=== PATIENT | female | born 1940 | race Caucasian/White ===

== ENCOUNTER 2021-01-06 13:26 | Outpatient (REF) | payer MEDICARE, SELFPAY ==
--- NOTE | ~2021-01-06 | XR_ITS ---
EXAMINATION: XR LUMBOSACRAL SPINE WITH OBLIQUES CLINICAL INFORMATION: Lumbar radiculopathy. COMPARISON: None TECHNIQUE: The lumbar spine is imaged in 5 views: AP, lateral, lateral view coned to lumbosacral junction, and bilateral oblique. FINDINGS: There is normal lumbar segmentation with 5 [id number] lumbar vertebrae of normal height and normal lumbar lordosis. There is no lumbar vertebral compression or destructive process. Oblique views show no spondylolysis. There is no spondylolisthesis. There are prominent degenerative disc changes at L1-L2 with disc narrowing and endplate sclerosis and vertebral spurring. There are also prominent degenerative disc changes at L5-S1 and facet degeneration, greatest L4 through S1. The SI joints and visualized sacrum are unremarkable. Bowel gas is unremarkable. There are scattered bulky calcifications seen in the lower pelvis extending beyond the film margin, possibly related to calcified fibroids. XR/XR lumbar spine 4V min IMPRESSION: 1. No vertebral compression, spondylolisthesis, or destructive process. 2. Prominent degenerative disc changes L1-L2 and L5-S1. 3. Probable calcified uterine fibroids extending beyond [id number].
== END 2021-01-06 13:27 | disposition home or self-care (01) ==
LOC: HO.XRAY 13:26
PROVIDERS: PCP Internal Medicine; Visit Provider Psychiatry & Neurology Neurology
DX: M54.16 Radiculopathy, lumbar region (principal)
CPT/HCPCS: 72110

== ENCOUNTER 2023-10-13 09:55 | Outpatient (AMB) | payer MEDICARE, SELFPAY ==
--- NOTE | 2023-10-13 09:59 | MHC.OFFVIS ---
Intake Vital Signs 10/13/23 10:11 Height 5 ft 7 in Weight 179 lb BMI 28.0 Intake Visit Reasons: LOG BRANDER-Left knee-follow up DOS 10/12/22 Intake Note: Sommer is a 83 year old female who presents as a new patient to reestablish care with Dr. Mann. Patient reports she is here for a follow up after a Left knee surgery on 10/12/2022 and is doing ok. She states that she is having a problem walking, she feels like she is dragging her left leg or is in need of support. This has been going on for about 3 months. The patient did not go to outpatient physical therapy following her left knee surgery last year. She reports minimal discomfort in her left knee. She takes Tylenol as needed for her discomfort. She continues to walk on her home treadmill for exercise. Allergies statins Allergy (Mild, Uncoded 10/13/23 10:14) joint pain Medication List - Last Reconciled 10/13/23 by Jaya Mann MD alendronate 70 mg PO QWEEK alirocumab (Praluent Pen) mg subcut chlorthalidone 25 mg PO DAILY omeprazole 20 mg PO DAILY [facility] Surgical History (Updated 10/13/23 @ 10:17 by Donna Langford CMA) H/O right wrist surgery Hx of left knee surgery (10/12/22) Social History (Updated 10/13/23 @ 10:17 by Donna Langford CMA) Patient Tobacco Use Status: Never used Tobacco Current occupational status: retired Current occupation: Right hand dominate Physical Exam Vital Signs: BMI result Body Mass Index 28.0 Const Other: Well-nourished well-developed very friendly female awake alert and oriented x3 in no acute distress Extrem Other: Bilateral lower extremity examination shows good capillary refill, no skin lesions noted, normal sensation light touch Left knee examination shows that the surgical incision is well healed, no erythema, full active extension and flexion to 120 degrees, her patella tracks well Assessment & Plan Assessment & Plan (1) Left knee pain: Code(s): M25.562 - Pain in left knee Plan Ms. Hitchcock continues to do well after undergoing left total knee replacement surgery in September of 2022. She does have difficulty walking most likely due to deconditioning and stiffness in her hips and knees. Thus, I will send her to outpatient physical therapy. I will see her back in 2-3 months time for repeat clinical examination. She will contact me prior to that time should any questions or concerns arise. Feel free to call me at any time should questions regarding her orthopedic management arise. I spent 22 minutes in reviewing the patient's records and imaging studies, seeing the patient and documenting in the medical record. Orders: Orders PT Evaluation and Treatment Today R53.81 - Other malaise XR knee LT 3V Today M25.562 - Pain in left knee Coding Level of Care Code Est Pt Level 2 (33935) Diagnoses Left knee pain M25.562
[2023-10-13 10:11] VITALS: BMI 28.0
== END 2023-10-13 10:44 | disposition home or self-care (01) ==
PROVIDERS: PCP Internal Medicine; Visit Provider Orthopaedic Surgery
DX: M25.562 Pain in left knee (principal)
CPT/HCPCS: 99213

== ENCOUNTER 2023-10-13 15:36 | Outpatient (REF) | payer MEDICARE, SELFPAY ==
--- NOTE | ~2023-10-13 | XR_ITS ---
EXAMINATION: XR KNEE, LEFT CLINICAL INFORMATION: Pain COMPARISON: None available. TECHNIQUE: Three views of the left knee. FINDINGS: Status post left knee arthroplasty. Orthopedic hardware is grossly intact. No acute visible fracture or dislocation. Joint space alignment are otherwise maintained. Soft tissues are unremarkable. XR/XR knee LT 3V IMPRESSION: 1. Status post left knee arthroplasty with intact orthopedic hardware. 2. No acute visible fracture or dislocation.
== END 2023-10-13 15:37 | disposition home or self-care (01) ==
LOC: HO.HOSX 15:36
PROVIDERS: Visit Provider Orthopaedic Surgery
DX: M25.562 Pain in left knee (principal)
CPT/HCPCS: 73562; 99212

== ENCOUNTER 2024-01-13 09:20 | Outpatient (AMB) | payer MEDICARE, SELFPAY ==
--- NOTE | 2024-01-13 09:29 | A.OFFVIS_ITS ---
Intake Visit Reasons: OV-Left knee-follow up DOS 10/12/22, Arthritis of right knee Intake Note: Sommer is a 83 year old female who presents with complaints of progressively worsening right knee pain. She did undergo left total knee replacement surgery on 10/12/2022. She reports minimal discomfort in her left knee. She describes her right knee pain as sharp and severe in nature, 10/10. Her right knee pain has gotten worse over the last few years in spite of continued non operative treatments. She has had injections in the past which gave her minimal relief. She has also tried Tylenol and anti-inflammatory medicines which gave her only mild relief. She has done physical therapy exercises which aggravated her pain. The patient has difficulty walking even short distances because of her right knee pain. At this point her right knee pain is interfering with her activities of daily living and her ability to sleep well through the night. Allergies statins Allergy (Mild, Uncoded 01/13/24 09:29) joint pain Medication List - Last Reconciled 01/13/24 by Jaya Mann MD alendronate 70 mg PO QWEEK alirocumab (Praluent Pen) mg subcut chlorthalidone 25 mg PO DAILY omeprazole 20 mg PO DAILY [facility] Surgical History (Updated 10/13/23 @ 10:17 by Donna Langford CMA) H/O right wrist surgery Hx of left knee surgery (10/12/22) Social History (Updated 10/13/23 @ 10:17 by Donna Langford CMA) Patient Tobacco Use Status: Never used Tobacco Current occupational status: retired Current occupation: Right hand dominate Physical Exam Const Other: Well-nourished well-developed very friendly female awake alert and oriented x3 in no acute distress Extrem Other: Bilateral lower extremity examination shows good capillary refill, no skin lesions noted, normal sensation light touch Right knee examination shows a minimal effusion, palpable crepitus with range of motion, pain with range of motion, range of motion from -3 degrees to 115 degrees, no instability Results Reviewed Results Reviewed: X-rays of the patient's right knee show end-stage degenerative joint disease with grade 4 [id number] arthritis, subchondral sclerosis, no acute bony abnormalities Assessment & Plan Assessment & Plan (1) Arthritis of right knee: Code(s): M17.11 - Unilateral primary osteoarthritis, right knee Plan Ms. Parent presents with progressively worsening right knee pain due to end- stage degenerative joint disease. I had a lengthy discussion with the patient regarding the treatment options. At this point she has failed continued non operative treatments. The risks and benefits of right total knee replacement surgery were discussed at length with the patient. The patient is interested in proceeding with surgery later this year. She will contact my office to pick a surgery date. I will see her back prior to the surgery to answer any final questions that she might have. Feel free to call me at any time should questions regarding her orthopedic management arise. I spent 20 minutes in reviewing the patient's records and imaging studies, seeing the patient and documenting in the medical record. Coding Level of Care Code Est Pt Level 3 (91966) Diagnoses Arthritis of right knee M17.11
== END 2024-01-13 09:48 | disposition home or self-care (01) ==
PROVIDERS: PCP Internal Medicine; Visit Provider Orthopaedic Surgery
DX: M17.11 Unilateral primary osteoarthritis, right knee (principal)
CPT/HCPCS: 99214

== ENCOUNTER → 2024-01-13 09:20 | Outpatient (BNVA) | payer MEDICARE, SELFPAY | PROVIDERS: PCP Internal Medicine; Visit Provider Orthopaedic Surgery | DX: M17.11 Unilateral primary osteoarthritis, right knee (principal); Z96.652 Presence of left artificial knee joint | CPT/HCPCS: 99212 ==

== ENCOUNTER → 2024-03-10 08:57 | Outpatient (BNVA) | payer MEDICARE, SELFPAY | PROVIDERS: PCP Internal Medicine | DX: Z01.818 Encounter for other preprocedural examination (principal) ==

== ENCOUNTER 2024-03-13 08:40 | Outpatient (REF) | payer MEDICARE, SELFPAY ==
--- NOTE | ~2024-03-13 | XR_ITS ---
EXAMINATION: XR ANKLE, LEFT CLINICAL INFORMATION: Pain. COMPARISON: Radiographs dated 06/28/2010. TECHNIQUE: AP, lateral, and mortise views of the left ankle. FINDINGS: Bony alignment is normal. There is mild bony demineralization. The ankle mortise is intact. There is a chronic soft tissue calcification situated adjacent to the medial malleolus, suggesting an old, healed ligamentous injury. No acute fracture, dislocation or joint effusion is seen. Boehler's angle is normal. There are small posterior and moderate plantar calcaneal spurs. There are degenerative changes in the dorsal midfoot. No focal soft tissue swelling, gas or foreign body seen. XR/XR ankle LT min 3V IMPRESSION: 1. No fracture, dislocation or left ankle joint effusion is seen. 2. A chronic soft tissue calcification is seen adjacent to the medial malleolus, suggesting an old, healed ligamentous injury. 3. There are calcaneal spurs. Electronically signed by: Reg Hodgson MD 04/11/2024 09:06 AM EDT
== END 2024-03-13 08:41 | disposition home or self-care (01) ==
LOC: HO.HOSX 08:40
DX: M25.572 Pain in left ankle and joints of left foot (principal); S93.402D Sprain of unspecified ligament of left ankle, subsequent encounter
CPT/HCPCS: 73610; 99212

== ENCOUNTER 2024-03-13 09:41 | Outpatient (AMB) | payer MEDICARE, SELFPAY ==
--- NOTE | 2024-03-13 09:49 | A.OFFVIS_ITS ---
Vital Signs 03/13/24 09:53 Height 5 ft 7 in Weight 177 lb BMI 27.7 Intake Visit Reasons: L Ankle Sprain/L Foot Pain Intake Note: Sommer is a 84 year old female who presents today for a new problem visit with complaints of left ankle and foot pain. Patient expresses 02/09/24 she slipped on granular step, her foot rolled and went out from under her. She was in [place] when this injury took place so she did not go to the doctors for it. She was able to ambulate but with pains. She was limited to some of the tours she can do in [place] due to her injury so she sat on the bus. She was seen in [place] ED on 02/21/24 for this injury. She has started icing her foot after her ED visit and noticed her swelling went down she she discontinued. Her left ankle appears to be slightly swollen today. She has intermittent numbness and tingling on the lateral side of her left ankle mainly in the morning until she starts to stretch and move her ankle around. When she tries to turn herself in bed she expresses pain in her ankle/foot. She usually does a mile every morning on her treadmill but has put this on hold since her injury and would like clearance to return. She has been trying to stay off her foot at home and would like to know if she should continue this or if she may begin to return to normal daily activities. Allergies statins Allergy (Mild, Uncoded 03/13/24 09:54) joint pain HPI HPI L Ankle Sprain/L Foot Pain: Details: Patient is an 84-year-old female who presents for evaluation of left ankle sprain, date of injury approximately 02/10/2024. The patient reports that, while in [place], she was going up some stairs, and some loose rocks on the stairs caused her to invert her foot. Patient reports that, due to being in [place], she was not immediately evaluated, but she tried to ?take it easy? and weightbear as little as possible. She was evaluated at [facility] on 02/21/2024, where she was diagnosed with a left ankle sprain, as well as the finding of a small avulsion fracture of the medial malleolus of the right ankle of unknown age. Today, the patient reports that her pain and swelling have improved significantly since date of injury, and then she is only experiencing ?a discomfort sensation? in the lateral left ankle, as well as mild edema. Patient reports no other acute complaints or concerns at this time. [facility] Surgical History H/O right wrist surgery Hx of left knee surgery (10/12/22) Social History Patient Tobacco Use Status: Never used Tobacco Current occupational status: retired Current occupation: Right hand dominate Physical Exam Vital Signs: BMI result Body Mass Index 27.7 Extrem Other: On inspection, there is noted to be mild edema about the lateral aspect of the patient's left ankle No edema of the medial left ankle noted No erythema, ecchymosis, evidence of infection noted No lacerations or abrasions Patient reports mild tenderness to palpation about the lateral malleolus of the left ankle, particularly over the ATFL Patient reports no tenderness to palpation of the medial malleolus of the left ankle Range of motion of the left foot and ankle full and intact Patient reports mild discomfort with inversion of the left foot Distal sensation intact Capillary refill brisk Results Reviewed Results Reviewed: X-rays obtained in the office today and independently reviewed by me, Harjeet Neal PA-C, demonstrate avulsion fracture of the medial malleolus of the left ankle of unknown age. No other fracture or acute bony abnormality noted. Assessment & Plan Assessment & Plan (1) Left ankle sprain: Code(s): S93.402A - Sprain of unspecified ligament of left ankle, initial encounter Category: Medical Plan 1. Left ankle sprain Date of injury approximately 02/10/2024 Patient appears to be recovering well from her injury Patient is educated about the typical recovery course At this time, the patient will be provided with a lace-up ankle brace to wear with daytime activities to provide extra stability to the left ankle for approximately the next 1-2 weeks Patient is educated to not wear this while she is at rest or sleeping Patient is offered physical therapy, but declines, stating that she will be having a knee replacement in approximately 1 month and she does not feel that she will be able to finish PT adequately prior to this, and she will also have physical therapy after her surgery Patient is advised to continue with normal activities as tolerated, but to begin a gentle ramp up into normal exercise activities. Patient will follow-up p.r.n. with any acute concerns Orders: Orders XR ankle LT min 3V Today M25.572 - Pain in left ankle and joints of left foot Coding Level of Care Code Est Pt Level 3 (21811) Diagnoses Left ankle sprain S93.402A
[2024-03-13 09:53] VITALS: BMI 27.7
== END 2024-03-13 10:42 | disposition home or self-care (01) ==
PROVIDERS: PCP Internal Medicine
DX: S93.402A Sprain of unspecified ligament of left ankle, initial encounter (principal)
CPT/HCPCS: 99213

== ENCOUNTER 2024-04-06 10:00 | Outpatient (AMB) | payer MEDICARE, SELFPAY ==
--- NOTE | 2024-04-06 10:01 | MHC.OFFVIS ---
Intake Visit Reasons: R TKA w/ 04/10/24 Intake Note: Sommer is a 83 year old female who presents with complaints of progressively worsening right knee pain. She did undergo left total knee replacement surgery on 10/12/2022. She reports minimal discomfort in her left knee. She describes her right knee pain as sharp and severe in nature, 10/10. Her right knee pain has gotten worse over the last few years in spite of continued non operative treatments. She has had injections in the past which gave her minimal relief. She has also tried Tylenol and anti-inflammatory medicines which gave her only mild relief. She has done physical therapy exercises which aggravated her pain. The patient has difficulty walking even short distances because of her right knee pain. At this point her right knee pain is interfering with her activities of daily living and her ability to sleep well through the night. Allergies statins Allergy (Mild, Uncoded 04/06/24 10:01) joint pain Medication List - Last Reconciled 04/06/24 by Jaya Mann MD acetaminophen 1,000 mg PO BID PRN alendronate 70 mg PO QWEEK Bacillus subtilis-inulin 1.5 billion cell-1 gram (Cultureaustyn Gumradha) 1 tab PO DAILY calcium carbonate (Calcium 600) 600 mg PO DAILY chlorthalidone 25 mg PO DAILY cholecalciferol (vitamin D3) (Vitamin D3) 50 mcg PO DAILY coenzyme Q10 (Co Q-10) 300 mg PO DAILY docusate sodium 50 mg PO DAILY glucosamine-chondroitin 250-200 mg (Osteo Bi-Flex) 1 tab PO DAILY multivitamin 1 tab PO DAILY phytosterol-pantethine 300-100 mg (CholestOff Complete) caps PO psyllium husk 0.8 grams PO DAILY red yeast rice 1,200 mg PO DAILY rosuvastatin 5 mg PO DAILY turmeric root extract 1,076 mg PO DAILY vitamin B complex 1 cap PO DAILY walker Folding front wheeled walker [facility] Medical History Varicose vein of leg Hx of basal cell carcinoma COVID-19 Right bundle branch block History of fracture of wrist Mild diastolic dysfunction GERD (gastroesophageal reflux disease) Osteoporosis HTN (hypertension) Scarlet fever Hypercholesterolemia Osteoarthritis Surgical History Hx of tonsillectomy Hx of bilateral cataract extraction History of vein stripping Hx of dilation and curettage H/O colonoscopy H/O right wrist surgery Hx of left knee surgery (10/12/22) Social History Are you a primary administrator health care facility to a significant other at home: No Do you presently have visiting nurse or other home services: No Patient Tobacco Use Status: Former Tobacco user Current occupational status: retired Current occupation: Right hand dominate Physical Exam Const Other: Well-nourished well-developed very friendly female awake alert and oriented x3 in no acute distress Extrem Other: Bilateral lower extremity examination shows good capillary refill, no skin lesions noted, normal sensation light touch Right knee examination shows a minimal effusion, palpable crepitus with range of motion, pain with range of motion, range of motion from -3 degrees to 115 degrees, no instability Results Reviewed Results Reviewed: X-rays of the patient's right knee show end-stage degenerative joint disease with grade 4 [id number] arthritis, subchondral sclerosis, osteophyte formation, no acute bony abnormalities Assessment & Plan Assessment & Plan (1) Osteoarthritis of right knee: Code(s): M17.11 - Unilateral primary osteoarthritis, right knee Category: Medical Plan Ms. Hitchcock presents with progressively worsening right knee pain due to end-stage degenerative joint disease. I had a lengthy discussion with the patient regarding the treatment options. At this point she has failed continued non operative treatments. The risks and benefits of right total knee replacement surgery were discussed at length with the patient. The patient wishes to proceed with surgery. library services coordinator will be consulted following surgery for home physical therapy and nursing. The patient will follow-up as instructed. Feel free to call me at any time should questions regarding her orthopedic management arise. I spent 21 minutes in reviewing the patient's records and imaging studies, seeing the patient and documenting in the medical record. Coding Level of Care Code Est Pt Level 3 (21094) Complex EM visit Add On G2211 Diagnoses Osteoarthritis of right knee M17.11
== END 2024-04-06 10:34 | disposition home or self-care (01) ==
PROVIDERS: PCP Internal Medicine; Visit Provider Orthopaedic Surgery
DX: M17.11 Unilateral primary osteoarthritis, right knee (principal)
CPT/HCPCS: 99214; G2211

== ENCOUNTER 2024-04-06 10:41 | Outpatient (REF) | payer MEDICARE, SELFPAY ==
--- NOTE | ~2024-04-06 | XR_ITS ---
EXAMINATION: XR KNEE, RIGHT CLINICAL INFORMATION: Right knee osteoarthritis COMPARISON: None available. TECHNIQUE: Four views of the right knee. FINDINGS: No fracture or joint effusion. Alignment is anatomic. Moderate to severe osteoarthritis with joint space narrowing and osteophyte formation is seen in the femoral-tibial joint, lateral compartment are more severe than the medial compartment. There is also osteoarthritis seen at the patellofemoral joint No abnormal soft tissue calcification. XR/XR knee RT 3V IMPRESSION: Moderate to severe osteoarthritis. Electronically signed by: Yehuda Gtz MD 04/17/2024 02:48 PM EDT
== END 2024-04-06 10:42 | disposition home or self-care (01) ==
LOC: HO.HOSX 10:41
PROVIDERS: PCP Internal Medicine; Visit Provider Orthopaedic Surgery
DX: M17.11 Unilateral primary osteoarthritis, right knee (principal)
CPT/HCPCS: 73562; 99212

== ENCOUNTER 2024-04-10 05:55 | Day surgery (SDC) | payer MEDICARE, SELFPAY ==
[2024-04-04 13:44] VITALS: BP 137/63; PULSE 65; RESP 18; O2SAT 98; BMI 28.8
--- NOTE | 2024-04-04 14:04 | P.CONAN_ITS ---
Documented by User: Mariaa Bautista NP 04/07/24 09:04 HPI - Anesthesia Eval Consult details Narrative: 84yo F for Right Knee Replacement Total, 04/10/24 Cardiac optimized Medically optimized s/p left knee ~2022 with GA d/t patient preference No recent illness No CP/SOB with walking 1 mile daily GERD: pt denies PMFSH Active Problems Active Problems: All Active Problems Left ankle sprain (Acute) Arthritis of right knee (Acute) Physical deconditioning (Acute) Left knee pain (Acute) Past Medical History Medical History Varicose vein of leg Hx of basal cell carcinoma COVID-19 Right bundle branch block History of fracture of wrist Mild diastolic dysfunction GERD (gastroesophageal reflux disease) Osteoporosis HTN (hypertension) Scarlet fever Hypercholesterolemia Osteoarthritis Surgical History Surgical History Hx of tonsillectomy Hx of bilateral cataract extraction History of vein stripping Hx of dilation and curettage H/O colonoscopy H/O right wrist surgery Hx of left knee surgery (10/12/22) Social History Social History Are you a primary live in caregiver to a significant other at home: No Do you presently have visiting nurse or other home services: No Patient Tobacco Use Status: Former Tobacco user Use of substances other than those prescribed or required for medical reasons: No Have you been hit, kicked, punched, or otherwise hurt by someone within the past year? If so, by whom?: No Are you DNR?: No Advance Directives: No Advance Directives Information Provided: Yes Advance Directives on File: No Recently lost weight without trying: No Eating poorly because of decreased appetite: No Nutrition Risks: No Nutritional Risk Patient : No : No Poor oral hygiene: Yes (implants, crowns) Current occupational status: retired Current occupation: Right hand dominate Meds Allergies Allergy/AdvReac Type Severity Reaction Status Date / Time statins Allergy Mild joint pain Uncoded 04/06/24 10:01 Home Medications ?Medication ?Instructions ?Recorded ?Confirmed ?Last Taken ?Type alendronate 70 mg tablet 70 mg PO QWEEK 10/13/23 04/10/2404/09/24 History chlorthalidone 25 mg tablet 25 mg PO DAILY 10/13/23 04/06/24 04/10/24 History rosuvastatin 5 mg tablet 5 mg PO DAILY 03/13/24 04/06/24 04/10/24 History Bacillus subtilis 1.5 billion 1 tab PO DAILY 04/04/24 04/06/24 04/09/24 History cell-inulin 1 gram chewable tablet (Culturelle Gummy) acetaminophen 500 mg tablet 1,000 mg PO BID PRN Pain 04/04/24 04/06/24 04/09/24 History calcium carbonate (Calcium 600) 600 mg PO DAILY 04/04/24 04/06/24 04/09/24 History cholecalciferol (vitamin D3) 50 50 mcg PO DAILY 04/04/24 04/06/24 04/09/24 History mcg (2,000 unit) capsule (Vitamin D3) coenzyme Q10 300 mg capsule (Co 300 mg PO DAILY 04/04/24 04/06/24 04/09/24 History Q-10) docusate sodium 50 mg capsule 50 mg PO DAILY 04/04/24 04/06/24 04/09/24 History glucosamine-chondroitin 250 mg-200 1 tab PO DAILY 04/04/24 04/06/24 04/09/24 History mg tablet (Osteo Bi-Flex) multivitamin 1 tab PO DAILY 04/04/24 04/06/24 04/09/24 History phytosterol 300 mg-pantethine 100 cap PO 04/04/24 04/06/24 Unknown History mg capsule (CholestOff Complete) psyllium husk 0.4 gram capsule 0.8 g PO DAILY 04/04/24 04/06/24 Unknown History red yeast rice 600 mg capsule 1,200 mg PO DAILY 04/04/24 04/06/24 04/09/24 History turmeric root extract 1,053 mg 1,076 mg PO DAILY 04/04/24 04/06/24 04/03/24 History tablet vitamin B complex 1 cap PO DAILY 04/04/24 04/06/24 04/09/24 History Exam Height,Weight and Vital Signs: Height 5 ft 7 in Weight 83.461 kg Last Vital Signs Pulse 65 04/04/24 13:44 Resp 18 04/04/24 13:44 BP 137/63 04/04/24 13:44 Pulse Ox 98 04/04/24 13:44 O2 Del Method Room Air 04/04/24 13:44 Pertinent Lab Results Pertinent Lab Results: CBC and BMP 03/2024 from outside facility WNL Narrative Narrative: EKG 03/2024 SB 1st deg AV block Airway Mallampati Class: III TM Dist: >3cm Neck ROM: Full Loose/Missing/Broken Teeth: Yes (right lower ~ #27, broken; most molars with crowns) Heart: RRR Lungs: CTAB Assessment and Plan Assessment Anesthesia Assessment: Anesthesia Plan Discussed (Pt prefers general vs spinal) and PAT Visit Documented by User: Linnea Field MD 04/10/24 08:36 PMFSH Past Medical History Medical History Varicose vein of leg Hx of basal cell carcinoma COVID-19 Right bundle branch block History of fracture of wrist Mild diastolic dysfunction GERD (gastroesophageal reflux disease) Osteoporosis HTN (hypertension) Scarlet fever Hypercholesterolemia Osteoarthritis Family History Family history of problems with anesthesia: No Surgical History Surgical History Hx of tonsillectomy Hx of bilateral cataract extraction History of vein stripping Hx of dilation and curettage H/O colonoscopy H/O right wrist surgery Hx of left knee surgery (10/12/22) History of Problems with Anesthesia: No Social History Social History Are you a primary live in caregiver to a significant other at home: No Do you presently have visiting nurse or other home services: No Patient Tobacco Use Status: Former Tobacco user Use of substances other than those prescribed or required for medical reasons: No Have you been hit, kicked, punched, or otherwise hurt by someone within the past year? If so, by whom?: No Are you DNR?: No Advance Directives: No Advance Directives Information Provided: Yes Advance Directives on File: No Recently lost weight without trying: No Eating poorly because of decreased appetite: No Nutrition Risks: No Nutritional Risk Patient : No : No Poor oral hygiene: Yes (implants, crowns) Current occupational status: retired Current occupation: Right hand dominate Meds Allergies Allergy/AdvReac Type Severity Reaction Status Date / Time statins Allergy Mild joint pain Uncoded 04/06/24 10:01 Home Medications ?Medication ?Instructions ?Recorded ?Confirmed ?Last Taken ?Type alendronate 70 mg tablet 70 mg PO QWEEK 10/13/23 04/10/24 04/09/24 History chlorthalidone 25 mg tablet 25 mg PO DAILY 10/13/23 04/06/24 04/10/24 History rosuvastatin 5 mg tablet 5 mg PO DAILY 03/13/24 04/06/24 04/10/24 History Bacillus subtilis 1.5 billion 1 tab PO DAILY 04/04/24 04/06/24 04/09/24 History cell-inulin 1 gram chewable tablet (Culturelle Gummy) acetaminophen 500 mg tablet 1,000 mg PO BID PRN Pain 04/04/24 04/06/24 04/09/24 History calcium carbonate (Calcium 600) 600 mg PO DAILY 04/04/24 04/06/24 04/09/24 History cholecalciferol (vitamin D3) 50 50 mcg PO DAILY 04/04/24 04/06/24 04/09/24 History mcg (2,000 unit) capsule (Vitamin D3) coenzyme Q10 300 mg capsule (Co 300 mg PO DAILY 04/04/24 04/06/24 04/09/24 History Q-10) docusate sodium 50 mg capsule 50 mg PO DAILY 04/04/24 04/06/24 04/09/24 History glucosamine-chondroitin 250 mg-200 1 tab PO DAILY 04/04/24 04/06/24 04/09/24 History mg tablet (Osteo Bi-Flex) multivitamin 1 tab PO DAILY 04/04/24 04/06/24 04/09/24 History phytosterol 300 mg-pantethine 100 cap PO 04/04/24 04/06/24 Unknown History mg capsule (CholestOff Complete) psyllium husk 0.4 gram capsule 0.8 g PO DAILY 04/04/24 04/06/24 Unknown History red yeast rice 600 mg capsule 1,200 mg PO DAILY 04/04/24 04/06/24 04/09/24 History turmeric root extract 1,053 mg 1,076 mg PO DAILY 04/04/24 04/06/24 04/03/24 History tablet vitamin B complex 1 cap PO DAILY 04/04/24 04/06/24 04/09/24 History Assessment and Plan Final Anesthetic Review Family History of Problems with Anesthesia: No History of Problems with Anesthesia: No NPO: Yes ASA Class: II Final Preanesthetic Review: No Changes in Pt Med Stat, Meds/Allgs Chart Reviewed , Consent Obtained/Reviewed and Anes Risks/Benef Reviewed Patient Risk: Low Procedure Risk: Low Anesthetic Plan Anesthetic Plan: GA (pt refuses spinal) and Regional Block Disposition: Standard PACU
[2024-04-04 15:45] LABS: MRSA Nasal PCR NEGATIVE (Negative); SA Nasal PCR NEGATIVE (Negative)
[2024-04-10] VITALS (16 sets, daily range): BP systolic 107–149; BP diastolic 51–76; PULSE 56–74; RESP 6–18; TEMP 36–36.9; O2SAT 93–100; BMI 28.8
[2024-04-10] MEDS: Lactated Ringers 1,000 ML 100 ML IVCONT ×2 (07:08→15:19)
--- NOTE | 2024-04-10 10:19 | P.BOP_ITS ---
Brief Operative Note Date of Service: 04/10/24 Pre-op diagnosis: Right knee degenerative joint disease Post-op diagnosis: same Procedure: Right total knee arthroplasty Implants: Henniker Triathlon cemented posterior stabilized total knee arthroplasty with a femoral component size 4 right, tibial component size 4, polyethylene liner size 4 with 9 mm of thickness, an asymmetric patellar component size 29 with 9 mm of thickness Surgeon: Jaya Mann MD Anesthesia: GETA and regional Was an Chip Applying Machine Tender used for this Procedure?: No Chip Applying Machine Tender: Meg Navarrete Estimated blood loss (mL): 200 Pathology: other (Bony fragments from the right femur, tibia and patella) Condition: stable Disposition: PACU
--- NOTE | 2024-04-10 10:20 | W.PM.OPN ---
Operative Note Operative Note Date of Service: 04/10/24 Narrative: After the patient was identified as Sommer Hitchcock and her right knee was initialed by myself the patient was brought to the holding area where a right leg nerve block was performed by the anesthesiologist in routine fashion. The patient was then brought to the operating room where general anesthesia was induced by the anesthesiologist in routine fashion. The patient was given 2 g of IV Ancef preoperatively for infection prophylaxis. The patient's right lower extremity was prepped and draped in sterile fashion. A formal time-out was completed. The patient's right knee was placed onto a small bump to produce 30? of knee flexion during exposure. A #10 scalpel blade was used to make a midline incision extending 1 handbreadth proximal and distal to the patella. A second #10 scalpel blade was used to dissect the subcutaneous tissues down to the extensor mechanism. The subcutaneous flaps were maintained as thick as possible. A medial parapatellar arthrotomy was then performed using a #10 scalpel blade. The arthrotomy was begun just medial to the patellar tendon. The arthrotomy was continued 1 cm medial to the patella and then 5 mm into the medial aspect of the quadriceps tendon. The infrapatellar fat pad was partially excised to help with exposure. The soft tissue retinaculum was raised one-half of the way around the medial aspect of the proximal tibia. The patella was everted and the knee was flexed to 90?. There was no injury to the patellar tendon or its insertion onto the tibial tubercle. A drill bit was introduced into the distal aspect of the femur with a starting point 1 cm anterior to the origin of the posterior cruciate ligament. The intramedullary alignment melanie was put into place. The distal alignment guide was set for a 5 degree valgus cut. The distal cutting block was put into place and was held with 4 pins. The intramedullary alignment melanie was removed. Soft tissues were retracted in the distal femoral cut was made using a sagittal saw. The distal aspect of the femur measured to be a size 4 right component. Two drill holes were placed into the distal aspect of the femur marking 3? of external rotation. The distal cutting block was impacted into place and was held with 2 pins. Soft tissues were retracted and the 4 distal femoral cuts were made using a sagittal saw. Final notching and drilling of the distal aspect of the femur were performed in routine fashion. The trial femoral component was impacted into place. The knee was taken through a full range of motion. The patella tracked well. The patella was everted and the knee was flexed to 90?. The trial component was removed and our attention was directed to the proximal tibia. The medial and lateral menisci were removed using a #10 scalpel blade. A small rim of the medial meniscus was left intact to help prevent injury to the medial collateral ligament. A drill bit was then introduced into the proximal tibia with a starting point midway from medial to lateral and one-third of the way posteriorly. The intramedullary alignment melanie was put into place. The proximal tibial cutting guide was placed over the alignment melanie in line with the 2nd toe. The guide was held in place using 3 pins. The intramedullary alignment melanie was removed. Soft tissues were retracted and the proximal tibial cut was made using a sagittal saw. The proximal tibia measured to be a size 4 component. The tibial tray was put into place with a 9 mm liner. The femoral component was impacted into place. The knee was taken through a full range of motion. There was full flexion and full extension. There was no instability with varus or valgus stress testing with the knee in flexion or extension. The patella tracked well with no medially directed force. The rotation of the tibial tray was marked using electrocautery with the knee in extension. The patella was everted and the knee was flexed to 90?. All trial components were removed. The tibial tray was placed onto the proximal tibia in line with the electrocautery sosa. The tray was held in place using 3 pins. Final broaching of the proximal tibia was performed in routine fashion. The trial liner and trial femoral component were put into place. The knee was brought into extension and our attention was directed to the patella. The patella measured 25 mm in thickness. The patellar resection guide was set for a 10 mm resection. Soft tissues were retracted and the patella cut was made using a sagittal saw. The remaining patella measured 15 mm in thickness. The undersurface of the patella was measured to be a size 29 asymmetric component. Three drill holes were placed into the undersurface of the patella in routine fashion. The trial component was put into place. The knee was taken through a full range of motion. The patella tracked well. The patella was everted and the knee was flexed to 90?. All trial components were removed. The knee was once again brought into extension and placed onto a small bump. The knee joint was irrigated with copious amounts of normal saline solution via pulse lavage while the cement was mixed. The patella was everted and the knee was flexed to 90?. A small amount of cement was placed along the posterior aspects of the tibial and femoral components. Cement was then pressurized into the proximal tibia. The tibial component was impacted into place. Any excess cement was removed. The polyethylene liner was then impacted into place. Cement was then pressurized into the distal aspect of the femur. A small amount of cement was placed into the intramedullary canal to help reduce bleeding. The femoral component was impacted into place. Any excess cement was removed. The knee was then brought into extension. Cement was pressurized into the undersurface of the patella. The patellar component was put into place and was held with a patella clamp. Any excess cement was removed. Once the cement had hardened the patellar clamp was removed. The knee was taken through a full range of motion. There was full flexion and extension. There was no instability with varus or valgus stress testing with the knee in flexion or extension. The patella tracked well with no medially directed force. The knee joint was irrigated with copious amounts of normal saline solution via pulse lavage. Any significant bleeding vessels were coagulated. The patient's right knee was placed onto a small bump. The arthrotomy was closed with #2 Ethibond [id number] interrupted suture as well as #1 Vicryl [id number] interrupted suture. The wound was once again irrigated. The subcutaneous tissues were closed with 0 Vicryl and 2-0 Vicryl interrupted sutures. The skin was closed with skin carlene. Dry sterile dressing and Bart bandages were placed over the patient's right knee. The patient was awoken and extubated in the operating room. The patient was transferred to the recovery room in stable condition.
[2024-04-10] MEDS: HYDROmorphone HCl 0.5 MG/0.5 ML SYRINGE 0.25 MG IVPUSH ×9 (10:21→17:43)
--- NOTE | 2024-04-10 11:51 | P.CONHOSP_ITS ---
History of Present Illness Data of Consult Service Date: 04/10/24 Requesting physician: Meg Navarrete Primary Care Provider: Flo Morillo MD [facility] Medical History Varicose vein of leg Hx of basal cell carcinoma COVID-19 Right bundle branch block History of fracture of wrist Mild diastolic dysfunction GERD (gastroesophageal reflux disease) Osteoporosis HTN (hypertension) Scarlet fever Hypercholesterolemia Osteoarthritis Surgical History Hx of tonsillectomy Hx of bilateral cataract extraction History of vein stripping Hx of dilation and curettage H/O colonoscopy H/O right wrist surgery Hx of left knee surgery (10/12/22) Social History Are you a primary career center director to a significant other at home: No Do you presently have visiting nurse or other home services: No Patient Tobacco Use Status: Former Tobacco user Use of substances other than those prescribed or required for medical reasons: No Have you been hit, kicked, punched, or otherwise hurt by someone within the past year? If so, by whom?: No Are you DNR?: No Advance Directives: No Advance Directives Information Provided: Yes Advance Directives on File: No Recently lost weight without trying: No Eating poorly because of decreased appetite: No Nutrition Risks: No Nutritional Risk Patient : No : No Poor oral hygiene: Yes (implants, crowns) Current occupational status: retired Current occupation: Right hand dominate Meds Allergies Allergy/AdvReac Type Severity Reaction Status Date / Time statins Allergy Mild joint pain Uncoded 04/06/24 10:01 Active Medications: Current Medications Acetaminophen (Acetaminophen 325 Mg Tablet) 650 mg PO Q6H PRN PRN Reason: Pain, Mild (Pain Scale 1-3), fever or headache Aspirin (Aspirin 325 Mg Tablet) 325 mg PO BID BOB Celecoxib (Celecoxib 200 Mg Capsule) 200 mg PO BID BOB Docusate Sodium (Docusate Sodium 100 Mg Capsule) 100 mg PO BID BOB Gabapentin (Gabapentin 100 Mg Capsule) 100 mg PO BEDTIME BOB Hydromorphone HCl (Hydromorphone Hcl 0.5 Mg/0.5 Ml Syringe) 0.25 mg IVPUSH Q4H PRN; Protocol PRN Reason: Pain, Severe (Pain Scale 7-10) Lactated Ringer's (Lr) 1,000 mls @ 100 mls/hr IVCONT .Q10H [facility] Cefazolin Sodium/Dextrose (Ancef) 2 gm in 50 mls @ 100 mls/hr IV Q8H [facility] Stop: 04/10/24 20:18 Methocarbamol (Methocarbamol 500 Mg Tablet) 500 mg PO BEDTIME [facility] Non-Formulary Medication (Alendronate) 70 mg PO QWEEK [facility] Ondansetron HCl (Ondansetron Hcl 4 Mg/2 Ml Vial) 4 mg IVPUSH Q8H PRN PRN Reason: Nausea and Vomiting Oxycodone HCl (Oxycodone Hcl Er 10 Mg Tab.Er.12h) 10 mg PO BID BOB Oxycodone HCl (Oxycodone Hcl Immed Release 5 Mg Tablet) 5 mg PO Q4H PRN PRN Reason: Pain, Moderate(Pain Scale 4-6) Oxycodone HCl (Oxycodone Hcl Immed Release 5 Mg Tablet) 10 mg PO Q4H PRN PRN Reason: Pain, Moderate(Pain Scale 4-6) Sodium Chloride (0.9 % Sodium Chloride Flush 3 Ml Syringe) 3 [facility] Home Medications ?Medication ?Instructions ?Recorded ?Confirmed ?Last Taken ?Type alendronate 70 mg tablet 70 mg PO QWEEK 10/13/23 04/10/24 04/09/24 History chlorthalidone 25 mg tablet 25 mg PO DAILY 10/13/23 04/06/24 04/10/24 History rosuvastatin 5 mg tablet 5 mg PO DAILY 03/13/24 04/06/24 04/10/24 History Bacillus subtilis 1.5 billion 1 tab PO DAILY 04/04/24 04/06/24 04/09/24 History cell-inulin 1 gram chewable tablet (Culturelle Gummy) acetaminophen 500 mg tablet 1,000 mg PO BID PRN Pain 04/04/24 04/06/24 04/09/24 History calcium carbonate (Calcium 600) 600 mg PO DAILY 04/04/24 04/06/24 04/09/24 History cholecalciferol (vitamin D3) 50 50 mcg PO DAILY 04/04/24 04/06/2424 History mcg (2,000 unit) capsule (Vitamin D3) coenzyme Q10 300 mg capsule (Co 300 mg PO DAILY 04/04/24 04/06/24 04/09/24 History Q-10) docusate sodium 50 mg capsule 50 mg PO DAILY 04/04/24 04/06/24 04/09/24 History glucosamine-chondroitin 250 mg-200 1 tab PO DAILY 04/04/24 04/06/24 04/09/24 History mg tablet (Osteo Bi-Flex) multivitamin 1 tab PO DAILY 04/04/24 04/06/24 04/09/24 History phytosterol 300 mg-pantethine 100 cap PO 04/04/24 04/06/24 Unknown History mg capsule (CholestOff Complete) psyllium husk 0.4 gram capsule 0.8 g PO DAILY 04/04/24 04/06/24 Unknown History red yeast rice 600 mg capsule 1,200 mg PO DAILY 04/04/24 04/06/24 04/09/24 History turmeric root extract 1,053 mg 1,076 mg PO DAILY 04/04/24 04/06/24 04/03/24 History tablet vitamin B complex 1 cap PO DAILY 04/04/24 04/06/24 04/09/24 History Physical Exam Vital Signs and Narrative: Vital Signs: Last Vital Signs Temp 98.1 F 04/10/24 11:31 Pulse 64 04/10/24 11:31 Resp 16 04/10/24 11:31 BP 138/76 04/10/24 11:31 Pulse Ox 97 04/10/24 11:31 O2 Del Method Room Air 04/10/24 11:31 O2 Flow Rate 2 04/10/24 11:01 FiO2 39 04/10/24 11:16 BMI result Body Mass Index 28.8
--- NOTE | 2024-04-10 11:52 | HO.PM.IMCN ---
History of Present Illness Data of Consult Service Date: 04/10/24 Primary Care Provider: Flo Morillo MD HPI 84-year-old woman status post total right knee arthroplasty. Surgery was unremarkable. Patient has been able to eat and drink without any nausea or vomiting. At this time she has no acute medical complaints, she is hemodynamically stable, pain well controlled. Review of Systems Review of Systems: Denies any recent fever chills or decrease in appetite respiratory denies any shortness of breath coverage production cardiovascular is adjustment of any PND or edema gastrointestinal denies any dysphagia abdominal pain nausea vomiting or diarrhea genitourinary denies any dysuria frequency or hematuria musculoskeletal denies any joint pain or swelling neuropsych denies any weakness or seizures all other systems reviewed are negative [facility] Medical History Varicose vein of leg Hx of basal cell carcinoma COVID-19 Right bundle branch block History of fracture of wrist Mild diastolic dysfunction GERD (gastroesophageal reflux disease) Osteoporosis HTN (hypertension) Scarlet fever Hypercholesterolemia Osteoarthritis Surgical History Hx of tonsillectomy Hx of bilateral cataract extraction History of vein stripping Hx of dilation and curettage H/O colonoscopy H/O right wrist surgery Hx of left knee surgery (10/12/22) Social History Household Members: None Housing: House Are you a primary home care coordinator to a significant other at home: No Do you presently have visiting nurse or other home services: No Comment: Calls when OOB. Bed alarm off due to alarming w/ frequent position changes Patient Tobacco Use Status: Never used Tobacco e-Cigarette/Vaping Use: Never Used service: No Current occupational status: retired Current occupation: Right hand dominate Meds Allergies Allergy/AdvReac Type Severity Reaction Status Date / Time statins Allergy Mild joint pain Uncoded 04/17/24 13:12 Active Medications: Current Medications Acetaminophen (Acetaminophen 325 Mg Tablet) 650 mg PO Q6H PRN PRN Reason: Pain, Mild (Pain Scale 1-3), fever or headache Aspirin (Aspirin 325 Mg Tablet) 325 mg PO BID BOB Celecoxib (Celecoxib 200 Mg Capsule) 200 mg PO BID BOB Docusate Sodium (Docusate Sodium 100 Mg Capsule) 100 mg PO BID BOB Gabapentin (Gabapentin 100 Mg Capsule) 100 mg PO BEDTIME [facility] Hydromorphone HCl (Hydromorphone Hcl 0.5 Mg/0.5 Ml Syringe) 0.25 mg IVPUSH Q4H PRN; Protocol PRN Reason: Pain, Severe (Pain Scale 7-10) Lactated Ringer's (Lr) 1,000 mls @ 100 mls/hr IVCONT .Q10H [facility] Cefazolin Sodium/Dextrose (Ancef) 2 gm in 50 mls @ 100 mls/hr IV Q8H [facility] Stop: 04/10/24 20:18 Methocarbamol (Methocarbamol 500 Mg Tablet) 500 mg PO BEDTIME [facility] Non-Formulary Medication (Alendronate) 70 mg PO QWEEK [facility] Ondansetron HCl (Ondansetron Hcl 4 Mg/2 Ml Vial) 4 mg IVPUSH Q8H PRN PRN Reason: Nausea and Vomiting Oxycodone HCl (Oxycodone Hcl Er 10 Mg Tab.Er.12h) 10 mg PO BID [facility] Oxycodone HCl (Oxycodone Hcl Immed Release 5 Mg Tablet) 5 mg PO Q4H PRN PRN Reason: Pain, Moderate(Pain Scale 4-6) Oxycodone HCl (Oxycodone Hcl Immed Release 5 Mg Tablet) 10 mg PO Q4H PRN PRN Reason: Pain, Moderate(Pain Scale 4-6) Sodium Chloride (0.9 % Sodium Chloride Flush 3 Ml Syringe) 3 ml IVFLUSH QSHIFT [facility] Home Medications ?Medication ?Instructions ?Recorded ?Confirmed ?Last Taken ?Type alendronate 70 mg tablet 70 mg PO CURTIS 10/13/23 04/10/24 04/09/24 History chlorthalidone 25 mg tablet 25 mg PO DAILY 10/13/23 04/06/24 04/09/24 History rosuvastatin 5 mg tablet 5 mg PO DAILY 03/13/24 04/06/24 04/09/24 History Bacillus subtilis 1.5 billion 1 tab PO DAILY 04/04/24 04/06/24 04/09/24 History cell-inulin 1 gram chewable tablet (Culturelle Gummy) calcium carbonate (Calcium 600) 600 mg PO DAILY 04/04/24 04/06/24 04/09/24 History cholecalciferol (vitamin D3) 50 50 mcg PO DAILY 04/04/24 04/06/24 04/09/24 History mcg (2,000 unit) capsule (Vitamin D3) coenzyme Q10 300 mg capsule (Co 300 mg PO DAILY 04/04/24 04/06/24 04/09/24 History Q-10) glucosamine-chondroitin 250 mg-200 1 tab PO DAILY 04/04/24 04/06/24 04/09/24 History mg tablet (Osteo Bi-Flex) multivitamin 1 tab PO DAILY 04/04/24 04/06/24 04/09/24 History phytosterol 300 mg-pantethine 100 1 cap PO DAILY 04/04/24 04/10/24 04/09/24 History mg capsule (CholestOff Complete) psyllium husk 0.4 gram capsule 0.8 g PO DAILY 04/04/24 04/06/24 04/09/24 History red yeast rice 600 mg capsule 1,200 mg PO DAILY 04/04/24 04/06/24 04/09/24 History turmeric root extract 1,053 mg 1,076 mg PO DAILY 04/04/24 04/06/24 04/09/24 History tablet vitamin B complex 1 cap PO DAILY 04/04/24 04/06/24 04/09/24 History Physical Exam Vital Signs and Narrative: Vital Signs: Last Vital Signs Temp 98.1 F 04/10/24 11:31 Pulse 64 04/10/24 11:31 Resp 16 04/10/24 11:31 BP 138/76 04/10/24 11:31 Pulse Ox 97 04/10/24 11:31 O2 Del Method Room Air 04/10/24 11:31 O2 Flow Rate 2 04/10/24 11:01 FiO2 39 04/10/24 11:16 BMI result Body Mass Index 28.8 Appearing in no acute distress head is normocephalic atraumatic eyes pupils are PERRLA sclera is anicteric mouth throat mucous membranes are intact and moist neck is supple no lymphadenopathy, no JVD noted lung sounds are clear to auscultation heart regular rate rhythm, clear S1, S2 positive bowel sounds, abdomen is soft, nontender neuro patient is alert x3, no focal deficits Right knee dressing intact Results Labs 04/12/24 05:38 04/12/24 05:38 Assessment and Plan (1) Arthritis of right knee: Status: Acute Plan 84-year-old woman status post right total knee arthroplasty Right total knee arthroplasty Management as per surgical team Pain management Hypertension Stable blood pressure Hyperlipidemia May continue statin DVT prophylaxis with full-dose aspirin Full code
--- NOTE | 2024-04-10 13:32 | PHA.MEDREC ---
Addendum entered by Basilia Angelo RPh 04/10/24 13:44: reviewed by [facility]. Original Note: Pharmacy Consult ? Medication Reconciliation Pharmacy reviewed med rec done by nursing. Confirmed medications with patient and list from Office Visit on 04/06/24. Patient confirmed she is taking Alendronate 70mg once weekly on Sundays and she took that on Wednesday04/09/24 along with her other medications.
[2024-04-10] MEDS: oxyCODONE HCl Immed Release 5 MG TABLET PO (14:43)
[2024-04-10] MEDS: Acetaminophen 325 MG TABLET 650 MG PO (14:44)
[2024-04-10] MEDS: ceFAZolin Sodium/Dextrose,Iso 2 GM/50 ML PIGGYBACK IV ×2 (15:18→21:27)
[2024-04-10] MEDS: Celecoxib 200 MG CAPSULE PO (19:14)
[2024-04-10] MEDS: Aspirin 325 MG TABLET PO (19:14)
[2024-04-10] MEDS: oxyCODONE HCl ER 10 MG TAB.ER.12H PO (19:14)
[2024-04-10] MEDS: Docusate Sodium 100 MG CAPSULE PO (19:15)
[2024-04-10] MEDS: methocarbamoL 500 MG TABLET PO (19:15)
[2024-04-10] MEDS: Gabapentin 100 MG CAPSULE PO (19:15)
[2024-04-11 01:25] VITALS: BP 117/73; PULSE 68; RESP 16; TEMP 36.2; O2SAT 97
[2024-04-11] MEDS: Lactated Ringers 1,000 ML 100 ML IVCONT (01:25)
[2024-04-11 05:54] LABS: MANUAL DIFF FLAG NO
[2024-04-11 06:17] LABS: Basophils Percent Auto 0.1 % (0-2); Eosinophils Percent Auto 0.1 % (0-4); Hematocrit 27.3 % (37.0-47.0); Hemoglobin 9.4 g/dl (12.0-16.0); Imm Gran Abs Auto 0.03 X10*3/uL (0.00-0.03); Imm Gran Pct Auto 0.4 % (0.0-0.4); Lymphocytes Percent Auto 12.3 % (20-40); Mean Corpuscular HGB Conc 34.4 g/dl (31.0-35.0); Mean Corpuscular Hemoglobin 31.2 pg (27.0-33.0); Mean Corpuscular Volume 90.7 fL (80.0-98.0); Mean Platelet Volume 9.7 fL (9.4-12.3); Monocytes Absolute Auto 0.9 X10*3/uL (0.1-1.2); Monocytes Percent Auto 11.4 % (2-11); Neutrophils Absolute Auto 6.1 x10*3/uL (2.0-8.3); Neutrophils Percent Auto 75.7 % (45-73); Platelet Count 194 X10*3/uL (160-400); Red Blood Count 3.01 X10*6/uL (4.20-5.50); Red Cell Distribution Width 13.3 % (11.0-16.0); White Blood Count 8.1 X10*3/uL (4.8-10.8)
[2024-04-11 06:18] LABS: Anion Gap 11 (12-20); Blood Urea Nitrogen 15 mg/dL (9-16); Calcium 8.5 mg/dL (8.4-10.2); Carbon Dioxide 27 mmol/L (22-29); Chloride 99 mmol/L (96-108); Creatinine Clr Calc Pharmacy 63.9; Estimated Glomerular Filt Rate > 60; Glucose Fasting 106 mg/dL (60-99); Potassium 3.6 mmol/L (3.3-5.1); Sodium 133 mmol/L (135-145)
[2024-04-11 07:44] VITALS: BP 118/56; PULSE 71; RESP 14; TEMP 36.5; O2SAT 98
[2024-04-11] MEDS: Docusate Sodium 100 MG CAPSULE PO ×2 (07:46→20:28)
[2024-04-11] MEDS: Aspirin 325 MG TABLET PO ×2 (07:46→20:28)
[2024-04-11] MEDS: Celecoxib 200 MG CAPSULE PO ×2 (07:47→20:28)
[2024-04-11] MEDS: oxyCODONE HCl ER 10 MG TAB.ER.12H PO ×2 (07:48→20:29)
--- NOTE | 2024-04-11 08:58 | HO.POSTANES ---
Post Anesthesia Evaluation Post Anesthesia Evaluation Date of Service: 04/11/24 Vital Signs: Vital Signs Temp Pulse Resp BP Pulse Ox O2 Del Method 04/11/24 07:44 97.7 F 71 14 118/56 L 98 Room Air 04/11/24 01:25 97.1 F 68 16 117/73 97 Room Air Anesthesia: Spinal and General LMA Mental Status: Awake Pain Control: Satisfactory Nausea/Vomiting: None Hydration: Adequate Anesthesia-Related Issues: No Anes. Related Issues
--- NOTE | 2024-04-11 09:43 | P.PNOP_ITS ---
Subjective Subjective Date of Service: 04/11/24 Interval history: POD 1 s/p RT TKA no overnight events resting in bed denies cp, palpitations, sob Physical Exam Vital Signs: Vital Signs: Last Vital Signs Temp 97.7 F 04/11/24 07:44 Pulse 71 04/11/24 07:44 Resp 14 04/11/24 07:44 BP 118/56 L 04/11/24 07:44 Pulse Ox 98 04/11/24 07:44 O2 Del Method Room Air 04/11/24 07:44 O2 Flow Rate 2 04/10/24 11:01 FiO2 39 04/10/24 11:16 BMI result Body Mass Index 28.8 Const: General: cooperative, healthy appearing and no acute distress Resp: Effort & Inspection: normal respiratory effort and able to speak in complete sentences Cardio: Rate: regular rate Peripheral pulses: Peripheral pulses 2+ throughout GI: Palpation (GI): Soft to palpation Skin: General skin exam: no rashes or lesions noted Extrem: Other: bandage clean dry and intact. [place] intact. No erythema or joint effusion. Calf supple nontender. Neurovascularly intact. Procedures Date of Service Date of Service: 04/11/24 Progress Note: A&P Assessment and plan (1) History of total right knee replacement: Status: Acute Assessment and Plan: * Continue pain mgmnt * Begin Aspirin for dvt ppx * begin PT for RT TKA * Dispo planning-Pending PT eval, pain mgmnt Need for continued inpatient stay: Pt eval Time Spent With Patient Time: Total time managing care of this patient today ____ minutes. Quality Stroke Does the patient have a stroke diagnosis?: No VTE Prior VTE?: No VTE Risk Level:: Surgical - very high VTE Device Contraindication: N/A - Device Ordered VTE Drug Contraindication: N/A - Med Ordered
[2024-04-11] MEDS: Acetaminophen 325 MG TABLET 650 MG PO (12:30)
[2024-04-11] MEDS: oxyCODONE HCl Immed Release 5 MG TABLET PO (12:30)
--- NOTE | 2024-04-11 12:48 | MHC.CM.PN ---
IMM delivered. Patient lives in a home alone. Functionally independent G[employer] MAIN [employer]. Has a walker and cane at home to use on dc, but was not using G[employer] MAIN [employer]. PCP Flo Morillo MD Patient reports she has an HCP naming daughter, Simtha as HCA. Copy requested. She will bring to her ortho f/u appt. DP: PT rec home w/ services. Patient prefers [facility] who has accepted. Niece will transport home. Patient has ortho f/u scheduled for 04/27, requesting this be changed to 04/26 as she won't have transportation on the . Message to ortho office to f/u. CM will continue to follow.
[2024-04-11 15:18] VITALS: BP 133/58; PULSE 77; RESP 20; TEMP 36.5; O2SAT 94
[2024-04-11 16:02] VITALS: BP 106/52; PULSE 81; RESP 16; TEMP 36.8; O2SAT 97
--- NOTE | 2024-04-11 19:15 | P.DS_ITS ---
DS: Providers Provider Date of Service: 04/12/24 Primary care physician: Flo Morillo MD Consults: 04/10/24 11:49 Consult to Hospitalist Routine Comment: Consulting Provider: Hospitalist Reason For Exam: medical managmeent, HTN DS: Diagnosis Discharge Diagnosis (1) History of total right knee replacement: Status: Acute DS: Summary Hospital Course Hospital Course: The patient underwent a successful right total knee arthroplasty, they were transferred to PACU and then to the floor to recover. During their stay, their vitals were stable, afebrile at 98.0. Labs were unremarkable, H/H 8.8/25.4 asymptomatic. POD 1 they were started on Aspirin 325mg po bid for DVT ppx, they also received Physical Therapy services twice a day. Prior to discharge, their dressing was clean dry and intact, and the plan was to be discharged home with [facility] services. Time Attestation Discharge Coordination Time (in mins): 30 Quality: Safe Use of Opioids Does Pt have an Active Cancer Diagnosis on the Problem List?: No Quality: Stroke Does the patient have a stroke diagnosis?: No Physical Exam Vital Signs: Vital Signs: Last Vital Signs Temp 98.3 F 04/11/24 16:02 Pulse 81 04/11/24 16:02 Resp 16 04/11/24 16:02 BP 106/52 L 04/11/24 16:02 Pulse Ox 97 04/11/24 16:02 O2 Del Method Room Air 04/11/24 16:02 O2 Flow Rate 4.0 04/11/24 15:18 FiO2 39 04/10/24 11:16 BMI result Body Mass Index 28.8 Const: General: cooperative, healthy appearing and no acute distress Resp: Effort & Inspection: normal respiratory effort and able to speak in complete sentences Cardio: Rate: regular rate Peripheral pulses: Peripheral pulses 2+ throughout GI: Palpation (GI): Soft to palpation Skin: Lesions: no lesions Rashes: no rashes Extrem: Other: right knee dressing is c/d/i. Able to dorsi/plantar flex. Calf is supple and nontender. Sensation intact. Pedal pulse intact. DS: Data Data Completed and Pending Completed studies during hospitalization [Text1]: Pending at discharge 04/10/24 08:33 Surgical [PTH] Routine Labs on day of discharge: Laboratory Results - last 24 hr 04/11/24 05:26 WBC 8.1 RBC 3.01 L Hgb 9.4 L Hct 27.3 L MCV 90.7 MCH 31.2 MCHC 34.4 RDW 13.3 Plt Count 194 MPV 9.7 Immature Gran % (Auto) 0.4 Neut % (Auto) 75.7 H Lymph % (Auto) 12.3 L [place] % (Auto) 11.4 H Eos % (Auto) 0.1 Baso % (Auto) 0.1 Lymph # (Auto) 1.0 L [place] # (Auto) 0.9 Eos # (Auto) 0.0 Baso # (Auto) 0.0 Abs Immat Gran (auto) 0.03 Absolute Neuts (auto) 6.1 Absolute Nucleated RBC 0.000 Nucleated RBC % (auto) 0.0 Sodium 133 L Potassium 3.6 Chloride 99 Carbon Dioxide 27 Anion Gap 11 L BUN 15 Creatinine 0.74 Estim Creat Clear Calc 63.9 Estimated GFR > 60 Fasting Glucose 106 H Calcium 8.5 Discharge Plan Discharge Patient Disposition: Home, Self-Care Referrals: Ritika DUNN [Outside] - 3-5 Days (Ritika DUNN will call you to schedule your physical therapy appointments) Romina Melton PA-C [Physician Collections Manager] - 04/27/24 12:30 pm Discharge Medications: New celecoxib 200 mg Capsule 200 mg PO BID 30 Days Qty: 60 0RF methocarbamol 500 mg Tablet 500 mg PO BEDTIME 7 Days Qty: 7 0RF acetaminophen 325 mg Tablet 650 mg PO Q6H PRN (Reason: Pain, Mild (Pain Scale 1-3), fever or headache) 30 Days Qty: 240 0RF aspirin 325 mg Tablet 325 mg PO BID 42 Days Qty: 84 0RF docusate sodium 100 mg Capsule 100 mg PO BID 30 Days Qty: 60 0RF gabapentin 100 mg Capsule 100 mg PO BEDTIME 7 Days Qty: 7 0RF oxycodone 5 mg Tablet 5 mg PO Q4H PRN (Reason: Pain, Moderate(Pain Scale 4-6)) 7 Days Qty: 42 0RF Rx Instructions: Partial Fill upon patient request. Continued (DME) walker Misc See Rx Instructions .ROUTE .MEDSUPPLY Qty: 1 0RF Rx Instructions: Folding front wheeled walker Co Q-10 300 mg Capsule 300 mg PO DAILY cholecalciferol (vitamin D3) [Vitamin D3] 50 mcg (2,000 unit) Capsule 50 mcg PO DAILY psyllium husk 0.4 gram Capsule 0.8 g PO DAILY multivitamin Tablet 1 tab PO DAILY calcium carbonate [Calcium 600] 600 mg calcium (1,500 mg) Tablet 600 mg PO DAILY vitamin B complex Capsule 1 cap PO DAILY glucosamine-chondroitin [Osteo Bi-Flex] 250-200 mg Tablet 1 tab PO DAILY Rx Instructions: give after food/meal red yeast rice 600 mg Capsule 1,200 mg PO DAILY Rx Instructions: give with meal/snack turmeric root extract 1,053 mg Tablet 1,076 mg PO DAILY Culturelle Gummy 1.5 billion cell-1 gram Tablet,Chewable 1 tab PO DAILY CholestOff Complete 300-100 mg Capsule 1 cap PO DAILY rosuvastatin 5 mg tablet 5 mg PO DAILY alendronate 70 mg tablet 70 mg PO CURTIS chlorthalidone 25 mg tablet 25 mg PO DAILY Discontinued docusate sodium 50 mg Capsule 50 mg PO DAILY acetaminophen 500 mg Tablet 1,000 mg PO BID PRN (Reason: Pain) Discharge Orders: Discharge Order (Routine); Ordered 04/12/24 Ordered By: Romina Melton Diet: Advance to usual diet Activity on Discharge: Use cane or walker Activity Restrictions/Additional Instructions: Physical Therapy for ROM 0-120, quad strength, gait training. Use walker for ambulation Limit stair climbing, No shower, No tub bath, No driving Continue anticoagulant x 6 weeks Keep Aquacel dressing clean, dry and intact. Follow up with orthopedics in 2 weeks Print Language: [place]an
--- NOTE | 2024-04-11 19:18 | P.F2F_ITS ---
Service Date Service Date: 04/11/24 Encounter Date of encounter: 04/12/24 Reasons for Services Signs and symptoms assessed: s/p RTKA Pt. is considered homebound due to recent surgery. Unable to drive, poor balance, poor gait mechanics. Reason for physical therapy: home safety and mobility, therapeutic exercises, restore joint function, gait/transfer training, assess need for DME and ADL training Homebound: Leaving the home is medically contraindicated at this time without the asist of a device and/or another person due th the listed conditions above and below. Reason homebound: unsteady gait / fall risk, leg weakness, pain with ambulation, poor balance / fall risk and unable to drive Certification: Based on the above findings, I certify that this patient is confined to the home and needs intermittent half-way care, physical therapy and/or speech th erapy, or continues to need occupational therapy. The patient is under my care, and I have initiated the establishment of the plan of care. The patient will be followed by a physician who will periodically review the plan of care. Time Spent With Patient Time: Total time managing care of this patient today ____ minutes.
[2024-04-11 19:30] VITALS: BP 121/58; PULSE 69; RESP 18; TEMP 37.2; O2SAT 96
[2024-04-11] MEDS: Gabapentin 100 MG CAPSULE PO (20:28)
[2024-04-11] MEDS: methocarbamoL 500 MG TABLET PO (20:28)
[2024-04-11] MEDS: 0.9 % Sodium Chloride Flush 3 ML SYRINGE IVFLUSH (20:31)
[2024-04-12 03:37] VITALS: BP 112/55; PULSE 71; RESP 16; TEMP 36.7; O2SAT 96
[2024-04-12] MEDS: oxyCODONE HCl Immed Release 5 MG TABLET PO (05:49)
[2024-04-12] MEDS: Acetaminophen 325 MG TABLET 650 MG PO (05:49)
[2024-04-12 06:13] LABS: MANUAL DIFF FLAG NO
[2024-04-12 06:29] LABS: Basophils Percent Auto 0.4 % (0-2); Eosinophils Absolute Auto 0.1 X10*3/uL (0.0-0.4); Hematocrit 25.4 % (37.0-47.0); Hemoglobin 8.8 g/dl (12.0-16.0); Imm Gran Abs Auto 0.06 X10*3/uL (0.00-0.03); Imm Gran Pct Auto 0.9 % (0.0-0.4); Lymphocytes Absolute Auto 1.5 X10*3/uL (1.2-4.9); Lymphocytes Percent Auto 22.3 % (20-40); Mean Corpuscular HGB Conc 34.6 g/dl (31.0-35.0); Mean Corpuscular Hemoglobin 31.4 pg (27.0-33.0); Mean Corpuscular Volume 90.7 fL (80.0-98.0); Mean Platelet Volume 9.9 fL (9.4-12.3); Monocytes Absolute Auto 0.8 X10*3/uL (0.1-1.2); Monocytes Percent Auto 11.9 % (2-11); Neutrophils Absolute Auto 4.4 x10*3/uL (2.0-8.3); Neutrophils Percent Auto 63.5 % (45-73); Platelet Count 189 X10*3/uL (160-400); Red Cell Distribution Width 13.6 % (11.0-16.0); White Blood Count 6.9 X10*3/uL (4.8-10.8)
[2024-04-12 06:38] LABS: Anion Gap 11 (12-20); Blood Urea Nitrogen 17 mg/dL (9-16); Calcium 8.5 mg/dL (8.4-10.2); Carbon Dioxide 28 mmol/L (22-29); Chloride 100 mmol/L (96-108); Creatinine Clr Calc Pharmacy 63.9; Estimated Glomerular Filt Rate > 60; Glucose Fasting 105 mg/dL (60-99); Potassium 3.6 mmol/L (3.3-5.1); Sodium 135 mmol/L (135-145)
[2024-04-12 07:12] VITALS: BP 129/59; PULSE 66; RESP 16; TEMP 36.9; O2SAT 95
[2024-04-12] MEDS: Aspirin 325 MG TABLET PO (08:06)
[2024-04-12] MEDS: Celecoxib 200 MG CAPSULE PO (08:06)
[2024-04-12] MEDS: Docusate Sodium 100 MG CAPSULE PO (08:06)
[2024-04-12] MEDS: oxyCODONE HCl ER 10 MG TAB.ER.12H PO (08:08)
[2024-04-12] MEDS: 0.9 % Sodium Chloride Flush 3 ML SYRINGE IVFLUSH (08:08)
== END 2024-04-12 15:04 | disposition home health service (06) ==
LOC: HO.SSS 08:34 → HO.S3 11:17
PROVIDERS: Physician Assistant; PCP Internal Medicine; Visit Provider Orthopaedic Surgery
PROC: (CPT 27447; principal; 2024-04-10 07:30)
DX: M17.11 Unilateral primary osteoarthritis, right knee (principal); M25.561 Pain in right knee; R26.2 Difficulty in walking, not elsewhere classified; M81.0 Age-related osteoporosis without current pathological fracture; R53.82 Chronic fatigue, unspecified; I10 Essential (primary) hypertension; E78.00 Pure hypercholesterolemia, unspecified; E78.9 Disorder of lipoprotein metabolism, unspecified; I51.9 Heart disease, unspecified; R80.9 Proteinuria, unspecified; K21.9 Gastro-esophageal reflux disease without esophagitis; Z79.899 Other long term (current) drug therapy; Z88.8 Allergy status to other drugs, medicaments and biological substances; Z96.652 Presence of left artificial knee joint; Z98.890 Other specified postprocedural states; Z87.891 Personal history of nicotine dependence
CPT/HCPCS: 27447; 36415; 80048; 85025; 86850; 86900; 86901; 87640; 87641; 88305; 88311; 97110; 97116; 97161; 97530; C1776; J0131; J0171; J0665; J0690; J1100; J1170; J2250; J2405; J2704; J3010; J3370; J7120

== ENCOUNTER → 2024-04-10 05:55 | Outpatient (BNV) | payer MEDICARE, SELFPAY | PROVIDERS: PCP Internal Medicine; Visit Provider Nurse Practitioner Acute Care | DX: I10 Essential (primary) hypertension (principal); M17.11 Unilateral primary osteoarthritis, right knee | CPT/HCPCS: 99221 ==

== ENCOUNTER → 2024-04-10 05:55 | Outpatient (BNV) | payer MEDICARE, SELFPAY | PROVIDERS: PCP Internal Medicine; Visit Provider Orthopaedic Surgery | DX: Z96.651 Presence of right artificial knee joint (principal) | CPT/HCPCS: 27447; 99024; 99238; G0180 ==

== ENCOUNTER 2024-04-17 13:00 | Outpatient (AMB) | payer MEDICARE, SELFPAY ==
[2024-04-17 13:05] VITALS: BMI 28.8
--- NOTE | 2024-04-17 13:05 | MHC.OFFVIS ---
Vital Signs 04/17/24 13:05 Height 5 ft 7 in Weight 184 lb BMI 28.8 Intake Visit Reasons: Bandage Change: R TKA w/ 04/10/24 Intake Note: Sommer is a 84 year old female who presents today for a bandage change s/p right TKA done by Dr. Mann on 04/10/24. Patient reports no concerns today. Allergies statins Allergy (Mild, Uncoded 04/17/24 13:12) joint pain HPI HPI Bandage Change: R TKA w/ 04/10/24: Details: 84-year-old female who returns to the office today for a bandage change s/p right TKA, 04/10/[address] Mann. She states she is doing well overall and has no concerns today. [facility] Medical History Varicose vein of leg Hx of basal cell carcinoma COVID-19 Right bundle branch block History of fracture of wrist Mild diastolic dysfunction GERD (gastroesophageal reflux disease) Osteoporosis HTN (hypertension) Scarlet fever Hypercholesterolemia Osteoarthritis Surgical History Hx of tonsillectomy Hx of bilateral cataract extraction History of vein stripping Hx of dilation and curettage H/O colonoscopy H/O right wrist surgery Hx of left knee surgery (10/12/22) Social History Household Members: None Housing: House Are you a primary gericare aide teacher to a significant other at home: No Do you presently have visiting nurse or other home services: No Comment: Calls when OOB. Bed alarm off due to alarming w/ frequent position changes Patient Tobacco Use Status: Never used Tobacco e-Cigarette/Vaping Use: Never Used service: No Current occupational status: retired Current occupation: Right hand dominate Review of Systems Const All systems reviewed & are unremarkable except as noted in HPI and below Physical Exam Vital Signs: BMI result Body Mass Index 28.8 Extrem Other: Right knee: Incision clean, dry and intact. She has some diffused swelling throughout the RLE from thigh down to the calf with some tenderness in the calf. NVI. Assessment & Plan Assessment & Plan (1) Osteoarthritis of right knee: Code(s): M17.11 - Unilateral primary osteoarthritis, right knee Category: Medical Plan Her aquacell was changed and new aquacell dressing applied. I did instruct her on not overdoing activities at home as admits to standing throughout the day doing dishes or doing housework which may be contributing to her swelling in the knee. I also encouraged her on elevation and performing ankle pumps. An US of the RLE was ordered to further assess for possible DVT which she is content with. If the results are negative, she will modify her activities and work on edema control. She will see me back on her routine post-op appointment, sooner if needed. Orders: Orders US venous duplex LE RT Today M79.89 - Other specified soft tissue disorders, R60.0 - Localized edema, Z96.651 - Presence of right artificial knee joint Patient Instructions: Scribed for Meg Navarrete PA-C, by Chu Jovel faculty i on call medical assistant, on 04/17/2024 at 1:15 PM EST.? I, Meg Navarrete PA-C, have personally reviewed and agree with the information entered by the scribe. Coding Level of Care Code Global (07929) Diagnoses Osteoarthritis of right knee M17.11
== END 2024-04-17 13:38 | disposition home or self-care (01) ==
PROVIDERS: PCP Internal Medicine; Visit Provider Physician Assistant
DX: M17.11 Unilateral primary osteoarthritis, right knee (principal)
CPT/HCPCS: 99024

== ENCOUNTER 2024-04-17 13:50 | Outpatient (REF) | payer MEDICARE, SELFPAY ==
--- NOTE | ~2024-04-17 | US_ITS ---
EXAMINATION: US TRIPLEX LOWER EXTREMITY, RIGHT CLINICAL INFORMATION: Right lower extremity edema, recent knee surgery COMPARISON: None available. TECHNIQUE: Color-flow triplex imaging with spectral analysis and compression Doppler were performed on the right lower extremity. FINDINGS: Respiratory variation, normal compression and augmented flow are noted throughout the right lower extremity. The visualized common femoral vein, superficial femoral vein, profunda femoral vein, popliteal vein and midcalf peroneal and posterior tibial venous segments show no evidence of deep venous thrombosis. There is no Downs's cyst. Focal area of subcutaneous edema in the posterior knee US/US venous duplex LE RT IMPRESSION: No evidence of deep venous thrombosis involving the right lower extremity. Electronically signed by: Yehuda Gtz MD 04/17/2024 02:46 PM EDT
== END 2024-04-17 13:51 | disposition home or self-care (01) ==
LOC: HO.US 13:50
PROVIDERS: Visit Provider Physician Assistant
DX: R60.0 Localized edema (principal); Z96.651 Presence of right artificial knee joint
CPT/HCPCS: 93971; 99212

== ENCOUNTER 2024-04-27 12:24 | Outpatient (AMB) | payer MEDICARE, SELFPAY ==
[2024-04-27 12:26] VITALS: BMI 28.8
--- NOTE | 2024-04-27 12:26 | A.OFFVIS_ITS ---
Vital Signs 04/27/24 12:26 04/27/24 12:30 Height 5 ft 7 in 5 ft 7 in Weight 184 lb 184 lb BMI 28.8 28.8 Intake Visit Reasons: 2WK PO: R TKA w/ 04/10/24 Intake Note: Sommer is a 84 year old female who presents today for post op appointment s/p R TKA w/ 04/10/24. Patient reports she is doing better. Allergies statins Allergy (Mild, Uncoded 04/17/24 13:12) joint pain HPI HPI 2WK PO: R TKA w/DR 04/10/24: Details: 89-year-old female who presents in the office today 2 weeks status post right total knee arthroplasty, which was performed on 04/10/[address] Mann. The patient was seen by EMANUEL Weaver on 04/17/24 when a new AquaCell dressing was applied. An US of the right lower extremity was ordered to further assess for possible DVT. She was restricted from overdoing any activities at home. She was encouraged to elevate the right lower extremity and perform ankle pumps. While in the office today, the patient reports she is currently doing better. [facility] Medical History Varicose vein of leg Hx of basal cell carcinoma COVID-19 Right bundle branch block History of fracture of wrist Mild diastolic dysfunction GERD (gastroesophageal reflux disease) Osteoporosis HTN (hypertension) Scarlet fever Hypercholesterolemia Osteoarthritis Surgical History Hx of tonsillectomy Hx of bilateral cataract extraction History of vein stripping Hx of dilation and curettage H/O colonoscopy H/O right wrist surgery Hx of left knee surgery (10/12/22) Social History Household Members: None Housing: House Are you a primary home care assistant to a significant other at home: No Do you presently have visiting nurse or other home services: No Comment: Calls when OOB. Bed alarm off due to alarming w/ frequent position changes Patient Tobacco Use Status: Never used Tobacco e-Cigarette/Vaping Use: Never Used service: No Current occupational status: retired Current occupation: Right hand dominate Review of Systems Const All systems reviewed & are unremarkable except as noted in HPI and below Physical Exam Vital Signs: BMI result Body Mass Index 28.8 Const General: cooperative, healthy appearing and no acute distress Resp Effort & Inspection: normal respiratory effort and able to speak in complete sentences Cardio Rate: regular rate Peripheral pulses: Peripheral pulses 2+ throughout GI Palpation (GI): Soft to palpation Skin Lesions: no lesions Rashes: no rashes Extrem Other: Right knee: Incision site is clean, dry, and intact. Nicol[place] intact. No surrounding erythema or drainage. No signs of infection. ROM is 0-110 degrees. NVI. Assessment & Plan Assessment & Plan (1) Status post total knee replacement, right: Code(s): Z96.651 - Presence of right artificial knee joint Category: Surgical Plan Ms. Hitchcock is an 89-year-old female who presents in the office today 2 weeks status post right total knee arthroplasty, which was performed on 04/10/[address] Mann. The patient was seen by EMANUEL Weaver on 04/17/24 when a new AquaCell dressing was applied. An US of the right lower extremity was ordered to further assess for possible DVT. She was restricted from overdoing any activities at home. She was encouraged to elevate the right lower extremity and perform ankle pumps. While in the office today, the patient reports she is currently doing better. Nicolaus removed and steri strips applied. I offered to send a prescription for an antibiotic prophylactically for possible dental work in the future; however, the patient reports she still has some antibiotics left at home and does not refill currently. The patient was educated they should not have any major dental work for the first 3 months post op after the right total knee arthroplasty. She would like to attend [facility] physical therapy in [place]. I have placed an order and given her a paper copy of the prescriptions. Follow up will be in 4 weeks, or sooner if needed. US of right lower extremity, obtained on 04/17/24, revealed: No evidence of deep venous thrombosis involving the right lower extremity. Orders: Orders PT Evaluation and Treatment Today Z96.651 - Presence of right artificial knee joint Patient Instructions: Scribed by Kelsey Ya medical officer psychiatry, for Romina Melton PA-C on 04/27/24 at 12:40 pm EST. Coding Level of Care Code Global (43239) Diagnoses Status post total knee replacement, right Z96.651
[2024-04-27 12:30] VITALS: BMI 28.8
== END 2024-04-27 12:50 | disposition home or self-care (01) ==
PROVIDERS: PCP Internal Medicine; Visit Provider Physician Assistant
DX: Z96.651 Presence of right artificial knee joint (principal)
CPT/HCPCS: 99024

== ENCOUNTER → 2024-04-27 12:24 | Outpatient (BNVA) | payer MEDICARE, SELFPAY | PROVIDERS: PCP Internal Medicine; Visit Provider Physician Assistant | DX: Z47.1 Aftercare following joint replacement surgery (principal); Z96.651 Presence of right artificial knee joint | CPT/HCPCS: 99212 ==

== ENCOUNTER 2024-05-18 08:59 | Outpatient (AMB) | payer MEDICARE, SELFPAY ==
[2024-05-18 09:01] VITALS: BMI 28.8
--- NOTE | 2024-05-18 09:01 | A.OFFVIS_ITS ---
Vital Signs 05/18/24 09:01 Height 5 ft 7 in Weight 184 lb BMI 28.8 Intake Visit Reasons: 6 WK PO: R TKA w/DR 04/10/24 Intake Note: Sommer is a 84 year old female who presents with complaints of mild intermittent discomfort in her right knee after undergoing right total knee replacement surgery on 04/10/2024. She continues to go to formal physical therapy at [facility] in [place]. She denies any fevers or chills. She takes Tylenol and Celebrex for her discomfort. Allergies statins Allergy (Mild, Uncoded 04/17/24 13:12) joint pain Medication List - Last Reconciled 05/18/24 by Jaya Mann MD acetaminophen 650 mg (2 x 325 mg) PO Q6H PRN 30 days alendronate 70 mg PO CURTIS aspirin 325 mg PO BID 42 days Bacillus subtilis-inulin 1.5 billion cell-1 gram (Cultureaustyn Gummy) 1 tab PO DAILY calcium carbonate (Calcium 600) 600 mg PO DAILY celecoxib 200 mg PO BID 30 days chlorthalidone 25 mg PO DAILY cholecalciferol (vitamin D3) (Vitamin D3) 50 mcg PO DAILY coenzyme Q10 (Co Q-10) 300 mg PO DAILY docusate sodium 100 mg PO BID 30 days gabapentin 100 mg PO BEDTIME 7 days glucosamine-chondroitin 250-200 mg (Osteo Bi-Flex) 1 tab PO DAILY methocarbamol 500 mg PO BEDTIME 7 days multivitamin 1 tab PO DAILY oxycodone 5 mg PO Q4H PRN 7 days phytosterol-pantethine 300-100 mg (CholestOff Complete) 1 cap PO DAILY psyllium husk 0.8 grams PO DAILY red yeast rice 1,200 mg PO DAILY rosuvastatin 5 mg PO DAILY turmeric root extract 1,076 mg PO DAILY vitamin B complex 1 cap PO DAILY walker Folding front wheeled walker [facility] Medical History Varicose vein of leg Hx of basal cell carcinoma COVID-19 Right bundle branch block History of fracture of wrist Mild diastolic dysfunction GERD (gastroesophageal reflux disease) Osteoporosis HTN (hypertension) Scarlet fever Hypercholesterolemia Osteoarthritis Surgical History Hx of tonsillectomy Hx of bilateral cataract extraction History of vein stripping Hx of dilation and curettage H/O colonoscopy H/O right wrist surgery Hx of left knee surgery (10/12/22) Social History Household Members: None Housing: House Are you a primary career based intervention coordinator to a significant other at home: No Do you presently have visiting nurse or other home services: No Comment: Calls when OOB. Bed alarm off due to alarming w/ frequent position changes Patient Tobacco Use Status: Never used Tobacco e-Cigarette/Vaping Use: Never Used service: No Current occupational status: retired Current occupation: Right hand dominate Physical Exam Vital Signs: BMI result Body Mass Index 28.8 Extrem Other: Right knee examination shows that the surgical incision is healing well, no erythema, full active extension and flexion to 120 degrees, her patella tracks well Assessment & Plan Assessment & Plan (1) Right knee pain: Code(s): M25.561 - Pain in right knee Category: Medical Plan Sommer continues to do well after undergoing right total knee replacement surgery on 04/10/2024. She will continue going to formal physical therapy for now. She will gradually transition to a home exercise program. She does know to take antibiotics before any dental work. She will contact prior to her follow-up appointment in 2 months should any questions or concerns arise. Feel free to call me at any time should questions regarding her orthopedic management arise. Coding Level of Care Code Global (47684) Diagnoses Right knee pain M25.561
== END 2024-05-18 09:19 | disposition home or self-care (01) ==
PROVIDERS: PCP Internal Medicine; Visit Provider Orthopaedic Surgery
DX: M25.561 Pain in right knee (principal)
CPT/HCPCS: 99024

== ENCOUNTER → 2024-05-18 08:59 | Outpatient (BNVA) | payer MEDICARE, SELFPAY | PROVIDERS: PCP Internal Medicine; Visit Provider Orthopaedic Surgery | DX: M25.561 Pain in right knee (principal); Z47.1 Aftercare following joint replacement surgery; Z96.651 Presence of right artificial knee joint | CPT/HCPCS: 99212 ==

== ENCOUNTER 2024-07-19 09:23 | Outpatient (AMB) | payer MEDICARE, SELFPAY ==
--- NOTE | 2024-07-19 09:28 | MHC.OFFVIS ---
Vital Signs 07/19/24 09:29 Height 5 ft 7 in Weight 184 lb BMI 28.8 Intake Visit Reasons: 2M PO: R TKA w/DR 04/10/24 Intake Note: Sommer is an 84 year old female who presents with complaints of mild to moderate intermittent discomfort in her right knee after undergoing right total knee replacement surgery on 04/10/2024. She continues with her home exercise program. She denies any fevers or chills. She does take Tylenol which gives her fairly good relief. She would like to go back to formal physical therapy. Allergies statins Allergy (Mild, Uncoded 07/19/24 09:29) joint pain Medication List - Last Reconciled 07/19/24 by Jaya Mann MD acetaminophen 650 mg (2 x 325 mg) PO Q6H PRN 30 days alendronate 70 mg PO CURTIS aspirin 325 mg PO BID 42 days Bacillus subtilis-inulin 1.5 billion cell-1 gram (Jovanni eD La Cruz) 1 tab PO DAILY calcium carbonate (Calcium 600) 600 mg PO DAILY celecoxib (Celebrex) 200 mg PO BID celecoxib (Celebrex) 200 mg PO DAILY chlorthalidone 25 mg PO DAILY cholecalciferol (vitamin D3) (Vitamin D3) 50 mcg PO DAILY coenzyme Q10 (Co Q-10) 300 mg PO DAILY docusate sodium 100 mg PO BID 30 days gabapentin 100 mg PO BEDTIME 7 days glucosamine-chondroitin 250-200 mg (Osteo Bi-Flex) 1 tab PO DAILY methocarbamol 500 mg PO BEDTIME 7 days multivitamin 1 tab PO DAILY oxycodone 5 mg PO Q4H PRN 7 days phytosterol-pantethine 300-100 mg (CholestOff Complete) 1 cap PO DAILY psyllium husk 0.8 grams PO DAILY red yeast rice 1,200 mg PO DAILY rosuvastatin 5 mg PO DAILY turmeric root extract 1,076 mg PO DAILY vitamin B complex 1 cap PO DAILY walker Folding front wheeled walker [facility] Medical History Varicose vein of leg Hx of basal cell carcinoma COVID-19 Right bundle branch block History of fracture of wrist Mild diastolic dysfunction GERD (gastroesophageal reflux disease) Osteoporosis HTN (hypertension) Scarlet fever Hypercholesterolemia Osteoarthritis Surgical History Hx of tonsillectomy Hx of bilateral cataract extraction History of vein stripping Hx of dilation and curettage H/O colonoscopy H/O right wrist surgery Hx of left knee surgery (10/12/22) Social History Household Members: None Housing: House Are you a primary school childcare attendant to a significant other at home: No Do you presently have visiting nurse or other home services: No Comment: Calls when OOB. Bed alarm off due to alarming w/ frequent position changes Patient Tobacco Use Status: Never used Tobacco e-Cigarette/Vaping Use: Never Used service: No Current occupational status: retired Current occupation: Right hand dominate Physical Exam Vital Signs: BMI result Body Mass Index 28.8 Const Other: Well-nourished well-developed very friendly female awake alert and oriented x3 in no acute distress Extrem Other: Bilateral lower extremity examination shows good capillary refill, no skin lesions noted, normal sensation light touch Right knee examination shows that the surgical incision is well healed, no erythema, full active extension and flexion to 100 degrees, her patella tracks well Assessment & Plan Assessment & Plan (1) Status post total knee replacement, right: Code(s): Z96.651 - Presence of right artificial knee joint Category: Surgical Plan Ms. Hitchcock continues to do fairly well after undergoing right total knee replacement surgery on 04/10/2024. I did give her a prescription to go back to formal physical therapy. She does know to take antibiotics before any dental work. She will contact me prior to her follow-up appointment in 3 months should any questions or concerns arise. Feel free to call me at any time should questions regarding her orthopedic management arise. I spent 22 minutes in reviewing the patient's records and imaging studies, seeing the patient and documenting in the medical record. Orders: Orders PT Evaluation and Treatment Today Z96.651 - Presence of right artificial knee joint Coding Level of Care Code Est Pt Level 3 (67829) Complex EM visit Add On G2211 Diagnoses Status post total knee replacement, right Z96.651
--- OUTSIDE RECORDS SUMMARY | 2024-07-19 09:28 | XMS_ITS ---
Author Name [facility] Organization Unknown History of Medication Use Medication Directions Dispensed Refills Start Date End Date Stat chlorthalidone 25 mg tablet 12/19/2022 active warfarin 1 mg tablet TAKE 4 TABLETS DAILY OR DIRECTED BY PHYSICIAN 12/19/2022 active Praluent Pen 75 mg/mL subcutaneous pen injector INJECT 75 MG DIRECTED EVERY 14 DAYS. 12/19/2022 active meloxicam 15 mg tablet TAKE 1 TABLET BY MOUTH EVERY DAY 12/19/2022 active alendronate 70 mg tablet 12/19/2022 active Praluent Pen 75 mg/mL subcutaneous pen injector INJECT 75 MG DIRECTED EVERY 14 DAYS. 12/19/2022 active meloxicam 15 mg tablet TAKE 1 TABLET BY MOUTH EVERY DAY 12/19/2022 active amoxicillin 500 mg tablet TAKE 4 TABS 1 HOUR PRIOR TO DENTAL APPOINTMENT 12/19/2022 active omeprazole 20 mg capsule,delayed release TAKE 1 CAPSULE BY MOUTH EVERY DAY 12/19/2022 active Myrbetriq 25 mg tablet,extended release TAKE 1 TABLET BY MOUTH EVERY DAY 03/13/2023 active Allergies Allergen Reaction Severity Comment Documented Date Source Statu s GESTGTH-HRA-OOI REDUCTASE INHIBITORS ENS_AONECT
--- OUTSIDE RECORDS SUMMARY | 2024-07-19 09:28 | XMS_ITS | Continuity of Care Document ---
Author Organization [facility] [place] [address] [place] [address] Phone [phone] Social History Type Date Description Comments Sex Unknown Medical Devices Description No Information Available Encounters Description No Information Available Assessments Description No Information Available Plan of Treatment No Information Available Functional Status Description No Information Available Mental Status Description No Information Available Referrals Description No Information Available
[2024-07-19 09:29] VITALS: BMI 28.8
== END 2024-07-19 09:53 | disposition home or self-care (01) ==
PROVIDERS: PCP Internal Medicine; Visit Provider Orthopaedic Surgery
DX: Z47.1 Aftercare following joint replacement surgery (principal); Z96.651 Presence of right artificial knee joint
CPT/HCPCS: 99213; G2211

== ENCOUNTER → 2024-07-19 09:23 | Outpatient (BNVA) | payer MEDICARE, SELFPAY | PROVIDERS: PCP Internal Medicine; Visit Provider Orthopaedic Surgery | DX: Z96.651 Presence of right artificial knee joint (principal) | CPT/HCPCS: 99212 ==

== ENCOUNTER 2024-11-22 11:36 | Outpatient (AMB) | payer MEDICARE, SELFPAY ==
--- NOTE | 2024-11-22 11:37 | A.OFFVIS_ITS ---
Vital Signs 11/22/24 11:44 Height 5 ft 7 in Weight 184 lb BMI 28.8 Intake Visit Reasons: OV- R TKA w/DR 04/10/24-Spring time follow up Intake Note: Sommer is an 84 year old female who presents for a follow up of right knee after undergoing right total knee replacement surgery on 04/10/2024. Patient reports that she is doing okay, states mild discomfort with walking. She continues to walk for exercise. Allergies statins Allergy (Mild, Uncoded 11/22/24 11:40) joint pain Medication List - Last Reconciled 11/22/24 by Jaya Mann MD acetaminophen 650 mg (2 x 325 mg) PO Q6H PRN 30 days alendronate 70 mg PO CURTIS Bacillus subtilis-inulin 1.5 billion cell-1 gram (Jovanni De La Cruz) 1 tab PO DAILY calcium carbonate (Calcium 600) 600 mg PO DAILY chlorthalidone 25 mg PO DAILY cholecalciferol (vitamin D3) (Vitamin D3) 50 mcg PO DAILY coenzyme Q10 (Co Q-10) 300 mg PO DAILY docusate sodium 100 mg PO BID 30 days glucosamine-chondroitin 250-200 mg (Osteo Bi-Flex) 1 tab PO DAILY multivitamin 1 tab PO DAILY phytosterol-pantethine 300-100 mg (CholestOff Complete) 1 cap PO DAILY psyllium husk 0.8 grams PO DAILY red yeast rice 1,200 mg PO DAILY rosuvastatin 5 mg PO DAILY turmeric root extract 1,076 mg PO DAILY vitamin B complex 1 cap PO DAILY walker Folding front wheeled walker [facility] Medical History Varicose vein of leg Hx of basal cell carcinoma COVID-19 Right bundle branch block History of fracture of wrist Mild diastolic dysfunction GERD (gastroesophageal reflux disease) Osteoporosis HTN (hypertension) Scarlet fever Hypercholesterolemia Osteoarthritis Surgical History History of total right knee replacement Hx of tonsillectomy Hx of bilateral cataract extraction History of vein stripping Hx of dilation and curettage H/O colonoscopy H/O right wrist surgery Hx of left knee surgery (10/12/22) Social History Household Members: None Housing: House Are you a primary school child care attendant to a significant other at home: No Do you presently have visiting nurse or other home services: No Comment: Calls when OOB. Bed alarm off due to alarming w/ frequent position changes Patient Tobacco Use Status: Never used Tobacco e-Cigarette/Vaping Use: Never Used service: No Current occupational status: retired Current occupation: Right hand dominate Physical Exam Vital Signs: BMI result Body Mass Index 28.8 Const Other: Well-nourished well-developed very friendly female awake alert and oriented x3 in no acute distress Extrem Other: Right knee examination shows that the surgical incision is well healed, no erythema, full active extension and flexion to 120 degrees, her patella tracks well Assessment & Plan Assessment & Plan (1) Right knee pain: Code(s): M25.561 - Pain in right knee Category: Medical Plan Ms. Hitchcock continues to do well after undergoing right total knee replacement surgery on 04/10/2024. She will continue with her home exercise program. She does know to take antibiotics before any dental work. She will contact me prior to her annual follow-up appointment should any questions or concerns arise. Feel free to call me at any time should questions regarding her orthopedic management arise. I spent 22 minutes in reviewing the patient's records and imaging studies, seeing the patient and documenting in the medical record. Coding Level of Care Code Est Pt Level 3 (18165) Complex EM visit Add On G2211 Diagnoses Right knee pain M25.561
[2024-11-22 11:44] VITALS: BMI 28.8
--- OUTSIDE RECORDS SUMMARY | 2024-11-22 14:01 | XMS_ITS | Continuity of Care Document ---
Author Organization [facility] [address] [place] [address] Phone [phone] Social History Type Date Description Comments Sex Unknown Medical Devices Description No Information Available Encounters Description No Information Available Assessments Description No Information Available Plan of Treatment No Information Available Functional Status Description No Information Available Mental Status Description No Information Available Referrals Description No Information Available
--- OUTSIDE RECORDS SUMMARY | 2024-11-22 14:01 | XMS_ITS | Data Portability ---
Author Organization [place] [facility] [place] Address [address] [place] [address] Care Team Providers Care [employer] Maker Name Role Phone YADIRA STEWART Primary Care Provider [phone] Assessment Encounter Date Assessment Date Assessment LastModified by Organization Details LastModified Time 10/27/2022 10/27/2022 Ms. Hitchcock is doing very well after undergoing left total knee replacement surgery on October 12, 2022. Her carlene were removed and Steri-Strips placed over her incision. She was given a prescription for antibiotics which she will take before any dental work. She will continue with her physical therapy exercises. She will contact me prior to her follow-up appointment in 6 weeks should any questions or concerns arise. [email or web address] Not available 10/27/2022 13:05:15 12/16/2022 12/16/2022 This is a pleasant 82-year-old female status post left total knee replacement surgery on October 12, 2022. She appears to be doing well clinically. She will continue with her home exercise regimen. I will see her back in 3 months time for repeat clinical exam. She understands when to take her antibiotic prophylaxis. Should she have any questions or concerns she should contact my office. She agrees to the above-noted plan. Indirect care and treatment in conjunction with Dr. Maldonado Additional treatment plan discussed with the patient in detail included the following; - Provider focused nonsteroidal anti-inflammator y regimen (discussed were the pros, cons, benefits and risks as well as any black box warnings) in patients over 60 years old they should be very cautious in taking these medications due to potential decreased kidney function and or elevated blood pressure. - Analgesic pain medication for pain suppression (discussed were the pros, cons, benefits and risks as well as any black box warnings) - The use of topical pain relieving medication were discussed - The use of ice to decrease inflammation and pain - The use of assistive ambulatory devices for ambulation and fall prevention - Formal specific guided physical therapy program I reviewed my findings at length with the patient today. ? ? ?We discussed the nature and etiology of this problem along with current treatment options. We discussed the expected course and outcomes and what to expect. We also discussed risks and benefits. ? ? ? All of their questions were answered today, and there was exhibited understanding and comprehension of all that was discussed. Time Spent: 10 minutes were spent reviewing previous imaging and charting. ? ? ?10 minutes were spent obtaining patient history. ? ? ?5 minutes were spent on physical exam. ? ? ?5? ? ?minutes were spent explaining diagnosis and assessment. Today's documentation was made using voice recognition software. This note may contain grammatical errors secondary to the software. Not available 12/16/2022 08:12:53 03/11/2023 03/11/2023 Pleasant 83-year-old female status post left total knee arthroplasty by Dr. Mann on 10/12/2022. She is doing well clinically she should continue with her stretching exercise regimen since she does not do this on a regular basis. This will prevent stiffening. She does take her antibiotics prior to dental work. She states she wishes to transfer her patient care to Dr. Mann at [facility]. We will have her sign a release in her notes accordingly. Should she change her mind and come back to our practice she can certainly call and make an appointment for future follow-ups. Indirect care and treatment in conjunction with Dr. Maldonado Additional treatment plan discussed with the patient in detail included the following; - Provider focused nonsteroidal anti-inflammator y regimen (discussed were the pros, cons, benefits and risks as well as any black box warnings) in patients over 60 years old they should be very cautious in taking these medications due to potential decreased kidney function and or elevated blood pressure. - Analgesic pain medication for pain suppression (discussed were the pros, cons, benefits and risks as well as any black box warnings) - The use of topical pain relieving medication were discussed - The use of ice to decrease inflammation and pain - The use of assistive ambulatory devices for ambulation and fall prevention - Formal specific guided physical therapy program I reviewed my findings at length with the patient today. ? ? ?We discussed the nature and etiology of this problem along with current treatment options. We discussed the expected course and outcomes and what to expect. We also discussed risks and benefits. ? ? ? All of their questions were answered today, and there was exhibited understanding and comprehension of all that was discussed. Time Spent: 10 minutes were spent reviewing previous imaging and charting. ? ? ?10 minutes were spent obtaining patient history. ? ? ?5 minutes were spent on physical exam. ? ? ?5? ? ?minutes were spent explaining diagnosis and assessment. Today's documentation was made using voice recognition software. This note may contain grammatical errors secondary to the software. Not available 03/11/2023 10:49:00 Plan of Treatment Reminders Order Date Submit Date Provider Last Modified By Organization Details Last Modified Time Details Appointments None record ed. Lab None record ed. Referral None record ed. Procedures None record ed. Surgeries None record ed. Imaging XR, knee, 3 view 023 03/11/20 23 [email or web address] [facility], [address], [place], [address], 3 13:03:35 XR, knee, 1 or 2 view 023 10/28/19 23 [email or web address] [facility], [address], [place], [address], 3 10:09:18 Medication Orders None record ed. Patient TargetsNo targets recorded. Patient Instructions Encounter Date Encounter Id Patient Instructions Last Modified By Organization Details Last Modified Time 03/11/2023 [id number] X-rays reveal well-seated well-positioned left total knee arthroplasty without sign of loosening. No acute bony abnormality. Not available 03/11/2023 10:49:26 Reason for Referral None Reported. Procedures Surgical History Date Name Laterality Status Provider Name and Address Organization Details Recorded Time closed reduction of fracture of wrist completed Aiyana Maddox [facility] 10/27/2022 10:26:24 total knee replacement completed Sheyla Olivo [facility] 03/11/2023 13:51:48 Imaging Results None recorded. Procedure Notes None recorded. Medical Equipment None Reported. Allergies Allergen ID Allergen Name Allergen Category Reaction Reaction Severity Criticality Documentation Date Start Date Code Code System Note Provider Name and Address Organization Details Recorded Time 980 Product containin g 3-hydroxy -3-methyl glutaryl- coenzyme A reductase inhibitor (product) medicatio n Not available Not available Not available 10/27/2022 63423 009 SNOMED Aiyana Maddox liat, [place] [facility] 10:25:21 Medications Name Sig Start Date Stop Date Status Note LastModified by Organization Details LastModified Time meloxicam 15 mg tablet TAKE 1 TABLET BY MOUTH EVERY DAY active Not Available Not Available No t Available alendronate 70 mg tablet active Not Available Not Available Not Available chlorthalido ne 25 mg tablet active Not Available Not Available Not Available amoxicillin 500 mg tablet TAKE 4 TABS 1 HOUR PRIOR TO DENTAL APPOINTMENT active Not Available Not Available Not Available omeprazole 20 mg capsule,garo yed release TAKE 1 CAPSULE BY MOUTH EVERY DAY active Not Available Not Available No t Available warfarin 1 mg tablet TAKE 4 TABLETS DAILY OR DIRECTED BY PHYSICIAN active Not Available Not Available No t Available Myrbetriq 25 mg tablet,exten ded release TAKE 1 TABLET BY MOUTH EVERY DAY active Not Available Not Available No t Available Praluent Pen 75 mg/mL subcutaneous pen injector INJECT 75 MG DIRECTED EVERY 14 DAYS. active Not Available Not Available No t Available Vitals Date Recorded Body height Provider Name an d Address Organization Details Last Updated DateTime 12/16/2022 170.[address] [facility] 12/16/2022 13:38:45 Date Recorded Body height Body mass index (BMI) Body weight Provider Name and Address Organization Details Last Updated DateTime 10/27/2022 170.18 cm 27.9 kg/m2 76536.44 erasto Maddox [facility] 10/27/2022 10:25:52 Date Recorded Body height Body mass index (BMI) Body weight Provider Name and Address Organization Details Last Updated DateTime 03/11/2023 172.72 cm 26.3 kg/m2 [address]9518.[address] [place] [facility] 03/11/2023 13:50:32 Social History Question Answer Notes LastModified by Organizat ion Details LastModified Time Tobacco Smoking Status Never Smoker Sheyla josue, [place] [facility] 03/11/2023 13:52:05 What Is Your Level Of Alcohol Consumption? Occasional Information not available 03/11/2023 How Many Times Per Week Do You Consume Alcohol? 1-2 Times Per Week Information not available 03/11/2023 Do You Use Any Illicit Or Recreational Drugs? No Information not available 03/11/2023 Do You Or Have You Ever Used Any Other Forms Of Tobacco Or Nicotine? No Information not available 03/11/2023 Sex: Unknown Functional Status None recorded. Mental Status None recorded. Family History Relationship Description Onset Age of this Age Resolved Age Notes LastModified by Organization Details LastModified Time Mother Sadi webb Not available 2022 13:51:04 Medical History Condition Response Rheumatoid Arthritis Y Hypertension Y Osteoporosis Y Gynecological HistoryNo gynecological history recorded. Obstetrics History GPAL:G 0 P 0 0 0 0 Past Encounters Encounter ID Performer Location Encounter Start Date Encounter Closed Date Diagnosis/Indication Diagnosis SNOMED-CT Code Diagnosis ICD10 Code Diagnosis Note [id number] [facility] [address] [facility] [address] [place] [address] 10/27/2022 10:12:16 10/27/2022 11:03:09 Pain of left knee joint [id number] 10208 M25.562 [id number] MD [address]ERICA Winters [facility] [address] [place] [address] 12/16/2022 13:35:36 12/16/2022 14:10:43 Postoperative visit [id number] Z09 [id number] [facility] [address] [place] [address] 03/11/2023 10:12:03 03/11/2023 10:45:32 History of left total knee replacement [id number] 641694 Z96.652 Follow-up visit [id number] Z09 Health Concerns Section Related Observation LastModified by Organization Detai ls LastModified Time None Recorded Concern Status LastModified by Organization Details LastModified Time None Recorded Advance Directives Directive None Recorded Payers Encounter Date Sequence Insurance Name Policy Number Policy Spencer Covered Member ID Spencer Member ID Guarantor Name 10/27/2022 1 [facility] - MEDICARE PREFERRED (MEDICARE REPLACEMENT HMO) LISETH Suazo Parent [id number] Sommer Hitchcock 12/16/2022 1 [facility] - MEDICARE PREFERRED (MEDICARE REPLACEMENT HMO) LISETH Suazo Parent [id number] Sommer Hitchcock 03/11/2023 1 [facility] - MEDICARE PREFERRED (MEDICARE REPLACEMENT HMO) LISETH Suazo Parent [id number] Sommer Hitchcock Notes Date Note Type Note Provider Name and Address Organization Details Recorded Time 10/27/2022 text/html The patient presents for her first postoperative visit after undergoing left total knee replacement surgery on October 12, 2022. She denies any fevers or chills. She continues with her physical therapy exercises. Jaya Mann MD [address] [facility], [place], [address], [place] [facility] 10/27/2022 13:05:29 12/16/2022 text/html This is a pleasa nt 82-year-old female status post left total knee replacement surgery on October 12, 2022. She states she is doing well she is doing her physical therapy/home exercise program. She states occasional discomfort for which she takes [id number] pain medication. Denies fevers, chills, flulike symptoms, cough, shortness of breath. She denies calf pain. Here for scheduled follow-up. JENNY GROVER PA-C [address] [facility], [place], [address], [place] [facility] 12/16/2022 14:10:11 03/11/2023 text/html Pleasant 84-year-old female status post L knee. L-TKA 10/12/[address] Mann. States she has good range of motion and no complaints. She admits she does not do her stretching exercise regimen. However she is taking her antibiotics prior to going to the dentist. JENNY GROVER PA-C [address], [place], [address], [place] [facility] 03/11/2023 10:50:14 OBGyn Episode No OBEpisode recorded.
--- OUTSIDE RECORDS SUMMARY | 2024-11-22 14:02 | XMS_ITS | Clinical Summary ---
Author Organization [facility] Address [address] [place] [address] Phone Care Team Providers Care Bio Medical Technician Name Role Phone Flo Stewart MD Primary Care Provider [phone] Family History Medical History Relation Name Comments Hyperlipidemia Mother Stroke Mother Relation Name Status Comments Mother Social History Tobacco Use Types Packs/Day Years Used Date Smoking Tobacco: Former Smokeless Tobacco: Never Alcohol Use Standard Drinks/Week Comments Yes 1 (1 standard drink = 0.6 oz pur e alcohol) Comments No Sex and Gender Information Value Date Recorded Sex Assigned at Not on file Legal Sex Female 2:36 AM EST Gender Identity Not on file Sexual Orientation Not on file Obstetrics History Para Term AB IAB SAB Ectopic Multiple Livin g Live Births 1 Last Filed Vital Signs Vital Sign Reading Time Taken Comments Blood Pressure 129/70 04/04/2024 8:28 AM EDT Sit ting L Arm Pulse 66 04/04/2024 8:28 AM EDT Temperature - - Respiratory Rate - - Oxygen Saturation - - Inhaled Oxygen Concentration - - Weight 81.6 kg (180 lb) 08/09/2024 1:16 PM EST Height 170.2 cm (5' 7 ) 08/09/2024 1:16 PM EST Body Mass Index 28.19 08/09/2024 1:16 PM EST Plan of Treatment Health Maintenance Due Date Last Done Comments DTaP,Tdap,and Td Vaccines (1 - Tdap) 02/07/1960 Pneumococcal Vaccine: 50+ Years (1 of 1 - PCV) 1991 Zoster Vaccines (1 of 2) 1991 RSV Immunization Adult Patients (1 - 1-dose 75+ series) 02/07/2016 Cholesterol Screening (Lipid Panel) 07/11/2022 Depression Screening 07/11/2022 Falls Risk Assessment 07/11/2022 Medicare Annual Wellness Visit 07/11/2022 Social Influencers of Health Screening 07/11/2022 COVID-19 Vaccine ( season) 2024 06/23/2021, 05/02/2021, 10/10/2020, Additional history exists Osteoporosis Screening (Bone Density Screening) 05/28/2030 05/28/2020 Influenza Vaccine Completed 05/08/2024, , 04/17/2020 HIB Vaccines Aged Out No longer eligi ble based on patient's age to complete this topic HPV Vaccines Aged Out No longer eligi ble based on patient's age to complete this topic Hepatitis A Vaccines Aged Out No long er eligible based on patient's age to complete this topic Hepatitis B Vaccines Aged Out No long er eligible based on patient's age to complete this topic IPV Vaccines Aged Out No longer eligi ble based on patient's age to complete this topic MMR Vaccines Aged Out No longer eligi ble based on patient's age to complete this topic Meningococcal ACWY Vaccine Aged Out N o longer eligible based on patient's age to complete this topic Meningococcal B Vaccine Aged Out No l onger eligible based on patient's age to complete this topic RSV Immunization Patients Under 20 months Aged Out No longer eligible based on patient's age to complete this topic Varicella Vaccines Aged Out No longer eligible based on patient's age to complete this topic Procedures Procedure Name Priority Date/Time Associated Diagnosis Comments [facility] DEXA AXIAL SKELETON Routine 05/28/2020 12:12 PM EDT Other specified disorders of bone density and structure, other site from Last 3 Months or Most Recently Relevant to Health Maintenance Results * [facility] DEXA AXIAL SKELETON (05/28/2020 12:12 PM EDT) Anatomical Region Laterality Modality Mammography 05/28/2020 10:3 0 AM EDT Narrative 05/28/2020 12:12 PM EDT [facility] Diagnostic Imaging Department [address] [place] [address] Patient: ??PARENT,SOMMER Suazo ?/Age/Sex: 1940 - 80 - F Unit#: ??[id number] ? Location/Status: ??SPDIMAM/REG CLI ? Mnemonic/Ordering Site: ??MAMDEXAAX/SPMAM Ordering Physician: ??FLO STEWART MD Cristin Dexa Axial Skeleton - 05/28/20 - 1140 HISTORY: ??The patient is a 80-year-old postmenopausal female with clinical concern for metabolic bone disease. FINDINGS: ??Dual energy x-ray absorptiometry of the lumbar spine and femurs is performed. The mean bone mineral density at L1-L4 is 1.000 gm/cm2 which is 85% of that of young normals and 98% of that of age matched controls. This yields a T-score of -1.5 and a Z-score of -0.1 which is diagnostic of osteopenia. The mean bone mineral density of the femurs bilaterally is 0.788 gm/cm2 which is 78% of that of young normals and 98% of that of age matched controls. ??This yields a T-score of -1.7 and a Z-score of -0.1 which is diagnostic of osteopenia. However, the T-score of the right femoral neck is -2.3 and that of the left femoral neck is -2.2 which is diagnostic of osteopenia. IMPRESSION: 1. Osteopenia. ??There has been a decrease of 3.2% in bone mineral density in the lumbar spine since the prior examination of 06/03/2017. ??There has been a decrease of 5.1% in bone mineral density in the right femur and a decrease of 4.6% in bone mineral density in the left femur. 2. FRAX analysis yields a 10-year probability of major osteoporotic fracture of 24.6% and a 10-year probability of hip fracture of 7.3%. Code 76175 Dictating Physician: ??ELISA FAIR MD Electronically Signed by: ??ELISA FAIR MD Dic Date/Time: ??05/28/20 1209 Sign date/Time: ??05/28/20 1212 Procedure Note Elisa Fair MD - 07/21/2022 [facility] Diagnostic Imaging Department [address] [place] [address] Patient: SOMMER TAYLOR /Age/Sex: 1940 - 80 - F Unit#: [id number] [facility]Ordering Site: [facility] Ordering Physician: FLO STEWART MD Cristin Dexa Axial Skeleton - 05/28/20 - 1140 HISTORY: The patient is a 80-year-old postmenopausal female withclinical concern for metabolic bone disease. FINDINGS: Dual energy x-ray absorptiometry of the lumbar spine and femursis performed. The mean bone mineral density at L1-L4 is 1.000 gm/cm2 which is85% of that of young normals and 98% of that of age matched controls. Thisyields a T-score of -1.5 and a Z-score of -0.1 which is diagnostic of osteopenia. The mean bone mineral density of the femurs bilaterally is 0.788 gm/uq2mzoif is 78% of that of young normals and 98% of that of age matched controls.This yields a T-score of -1.7 and a Z-score of -0.1 which is diagnostic of osteopenia. However, the T-score of the right femoral neck is -2.3 andthat of the left femoral neck is -2.2 which is diagnostic of osteopenia. IMPRESSION: 1. Osteopenia. There has been a decrease of 3.2% in bone mineral densityin the lumbar spine since the prior examination of 06/03/2017. There has tong decrease of 5.1% in bone mineral density in the right femur and a decreaseof 4.6% in bone mineral density in the left femur. 2. FRAX analysis yields a 10-year probability of major osteoporoticfracture of 24.6% and a 10-year probability of hip fracture of 7.3%. Code 53237 Dictating Physician: ELISA FAIR MD Electronically Signed by: ELISA FAIR MD Dic Date/Time: 05/28/20 1209 Sign date/Time: 05/28/20 1212 Flo Stewart MD IMG BI PROCEDURES Final Resu lt from Last 3 Months or Most Recently Relevant to Health Maintenance Insurance [employer] Care Teams Bio Medical Technician Relationship Specialty Start Date End Date Flo Stewart MD [address] [place] [address] (work) PCP - General 08/09/18
--- OUTSIDE RECORDS SUMMARY | 2024-11-22 14:02 | XMS_ITS | Clinical Summary ---
Author Organization [facility] Address [address] [id number] Care Team Providers Care Hoop Driving Machine Operator Helper Name Role Phone Flo Morillo MD Primary Care Provider [phone] Allergies Active Allergy Reactions Criticality Noted Date Comments Statins 07/22/2022 Medications Medication Sig Dispensed Refills Start Date End Date Status alendronate (FOSAMAX) tablet 70 mg 0 06/04/2022 Active chlorthalidone (HYGROTON) 25 MG tablet Take 1 tablet (25 mg total) by mouth daily. 0 Active Cholecalciferol 50 MCG (2000 UT) CAPS Take by mouth. 0 Active Coenzyme Q10 300 MG CAPS Take by mouth. 0 Active Multiple Vitamin (Multivitamin Adult) TABS Take by mouth. 0 Active omeprazole (PriLOSEC) 20 MG capsule Take 1 capsule (20 mg total) by mouth daily. 0 06/30/2022 Active Red Yeast Rice Extract 600 MG CAPS Take 2 caps in the am and 1 cap in the pm 0 Active Turmeric 500 MG CAPS Take 1,000 mg by mouth. 0 Active Praluent 75 MG/ML SOAJ 0 08/14/2022 Ac tive Alirocumab (Praluent) 75 MG/ML SOAJ 75 mg. 0 08/04/2022 Active Social History Tobacco Use Types Packs/Day Years Used Date Smoking Tobacco: Never Assessed Sex and Gender Information Value Date Recorded Sex Assigned at Not on file Gender Identity Not on file Sexual Orientation Not on file Job Start Date Occupation Industry Not on file Not on file Not on file Last Filed Vital Signs Vital Sign Reading Time Taken Comments Blood Pressure - - Pulse - - Temperature - - Respiratory Rate - - Oxygen Saturation - - Inhaled Oxygen Concentration - - Weight 80.7 kg (178 lb) 07/22/2022 1:38 PM EST Height 170.2 cm (5' 7 ) 07/22/2022 1:38 PM EST Body Mass Index 27.88 07/22/2022 1:38 PM EST Plan of Treatment Health Maintenance Due Date Last Done Comments COVID-19 Vaccine (#1) 1940 Depression Screening 1953 Preventative Health Evaluation 1959 DTap / Tdap / Td (1 - Tdap) 02/07/1960 Shingrix-Zoster Vaccine (1 of 2) 1991 Fall Risk Assessment 2006 Osteoporosis Screening (DEXA Scan) 2006 Pneumococcal Vaccine (1 of 1 - PCV) 2006 RSV Adult > 60+ Yrs or Pregn ant (1 - 1-dose 75+ series) 02/07/2016 Influenza Vaccine (#1) 2024 Hepatitis B Vaccines Aged Out No long er eligible based on patient's age to complete this topic RSV Ped < 20 months Aged Out No longe r eligible based on patient's age to complete this topic Care Teams Hoop Driving Machine Operator Helper Relationship Specialty Start Date End Date Flo Morillo MD [address] [facility] [address] [place] [address] PCP - General Internal Medicine 03/14/19
== END 2024-11-22 11:56 | disposition home or self-care (01) ==
LOC: HO.HOS 11:36
PROVIDERS: PCP Internal Medicine; Visit Provider Orthopaedic Surgery
DX: M25.561 Pain in right knee (principal); Z96.651 Presence of right artificial knee joint
CPT/HCPCS: 99213; G2211

== ENCOUNTER → 2024-11-22 11:36 | Outpatient (BNVA) | payer MEDICARE, SELFPAY | PROVIDERS: PCP Internal Medicine; Visit Provider Orthopaedic Surgery | DX: M25.561 Pain in right knee (principal); Z96.651 Presence of right artificial knee joint | CPT/HCPCS: 99212 ==

== ENCOUNTER 2025-02-21 10:37 | Outpatient (REF) | payer MEDICARE, SELFPAY ==
--- OUTSIDE RECORDS SUMMARY | 2025-02-22 11:31 | XMS_ITS | Patient Health Record ---
Author Organization [facility] Address [address] [place] [phone] Care Team Providers Care Presser Cotton Ginning Name Role Phone Dhiraj Cox Jr [phone] Reason For Referral No Information Plan Of Treatment No Information
--- OUTSIDE RECORDS SUMMARY | 2025-02-22 11:31 | XMS_ITS | Clinical Summary ---
Author Organization [facility] Address [address] [place] [address] Phone Care Team Providers Care Hospitality Housekeeper Name Role Phone Yadira Stewart MD Primary Care Provider Family History Medical History Relation Name Comments [...] 08/09/2024 1:16 PM EST Plan of Treatment Upcoming Encounters Date Type Department Care Team (Late st Contact Info) Description 04/19/2025 9:10 AM EDT Office Visit [facility] [address] [facility] [address] [place] [phone] Pauline Carmichael, CHRISSIE [address] [place] [address] Health Maintenance Due Date Last Done Comments DTaP,Tdap,and Td Vaccines (1 - Tdap) 02/07/1960 Pneumococcal Vaccine: 50+ Years (1 of 1 - PCV) 1991 Zoster Vaccines (1 of 2) 1991 RSV Immunization Adult Patients (1 - 1-dose 75+ series) 02/07/2016 Cholesterol Screening (Lipid Panel) 07/11/2022 Falls Risk Assessment 07/11/2022 Medicare Annual Wellness Visit 07/11/2022 Social Influencers of Health Screening 07/11/2022 COVID-19 Vaccine ( season) 2024 06/23/2021, 05/02/2021, 10/10/2020, Additional history exists Depression Screening 08/02/2024 Influenza Vaccine (#1) 2025 4, 08/10/2023, 04/17/2020 Osteoporosis Screening (Bone Density Screening) 05/28/2030 05/28/2020 HIB Vaccines Aged Out No longer eligi [...] Procedure Name Priority Date/Time Associated Diagnosis Comments [facility] DEXA AXIAL SKELETON Routine 05/28/2020 12:12 PM EDT Other specified disorders of bone density and structure, other site from Last 3 Months or Most Recently Relevant to Health Maintenance Results * [facility] DEXA AXIAL SKELETON (05/28/2020 12:12 PM EDT) Anatomical Region Laterality Modality Mammography 05/28/2020 10:3 0 AM EDT Narrative 05/28/2020 12:12 PM EDT [facility] Diagnostic Imaging Department [address] [place] [address] Patient: SOMMER TAYLOR /Age/Sex: 1940 80 - F Unit#: [id number] Location/Status: SPDIMA/REG CLI [facility] Ordering Physician: YADIRA STEWART MD Cristin Dexa Axial Skeleton - 05/28/203 HISTORY: The patient is a 80-year-old postmenopausal female with clinical concern for metabolic bone disease. FINDINGS: Dual [...] matched controls. This yields a T-score of -1.7 and a [...] the prior examination of 06/03/2017. There has been a decrease of 5.1% in bone mineral density in the right femur and a decrease of 4.6% in bone mineral density in the left femur. 2. FRAX analysis yields a 10-year probability of major osteoporotic fracture of 24.6% and a 10-year probability of hip fracture of 7.3%. Code 55541 Dictating Physician: ELISA FAIR MD Electronically Signed by: ELISA FAIR MD Dic Date/Time: 05/28/20 1209 Sign date/Time: 05/28/20 1212 Procedure Note Elisa Fair MD - 07/21/2022 [facility] Diagnostic Imaging Department [address] [place] [address] Patient: SOMMER TAYLOR /Age/Sex: 1940 - 80 - F Unit#: [id number] Location/Status: [facility] Mnemonic[facility]ing [facility] Ordering Physician: YADIRA STEWART MD Cristin Dexa Axial Skeleton - 05/28/20 1140 HISTORY: The patient is a 80-year-old [...] density of the femurs bilaterally is 0.788 gm/re1ivsvn is 78% of that of young normals [...] probability of hip fracture of 7.3%. Code 98321 Dictating Physician: ELISA FAIR MD Electronically Signed by: ELISA FAIR MD Dic Date/Time: 05/28/20 1209 Sign date/Time: 05/28/20 1212 Yadira Stewart MD IMG BI PROCEDURES Final Resu lt from Last 3 Months or Most Recently Relevant to Health Maintenance Insurance [employer] Care Teams Hospitality Housekeeper Relationship Specialty Start Date End Date Yadira Stewart MD [address] [place] [address] PCP - General 08/09/18
--- OUTSIDE RECORDS SUMMARY | 2025-02-22 11:31 | XMS_ITS ---
Author Name [facility] Organization Unknown History of Medication Use Medication Directions Dispensed Refills Start Date End Date Stat us amoxicillin 500 mg tablet TAKE 4 TABS 1 HOUR PRIOR TO DENTAL APPOINTMENT active Myrbetriq 25 mg tablet,extended release TAKE 1 TABLET BY MOUTH EVERY DAY active Praluent Pen 75 mg/mL subcutaneous pen injector INJECT 75 MG DIRECTED EVERY 14 DAYS. active warfarin 1 mg tablet TAKE 4 TABLETS DAILY OR DIRECTED BY PHYSICIAN active Allergies Allergen Reaction Severity Comment Documented Date Source Statu s [id number] REDUCTASE INHIBITORS ENS_AONECT Encounters Encounter Type Encounter Reason Primary Diagnosis Location Date Ambulatory [facility] 03/11/2023 Ambulatory [facility] 03/11/2023 [facility] 03/05/2023 Ambulatory [facility] 03/05/2023 [facility] 12/23/2022 [facility]ulatory [facility] 12/23/2022 [facility] 12/14/2022
--- OUTSIDE RECORDS SUMMARY | 2025-02-22 11:31 | XMS_ITS | Clinical Summary ---
Author Organization [facility] Address [address] [id number] Care Team Providers Care Health And Wellness Advisor Name Role Phone Flo Morillo MD Primary Care Provider [phone] Allergies Active Allergy Reactions Criticality Noted Date [...] 1-dose 75+ series) 02/07/2016 Influenza Vaccine (#1) 2025 Hepatitis B Vaccines Aged Out No long er eligible based on patient's age to complete this topic RSV Ped < 20 months Aged Out No longe r eligible based on patient's age to complete this topic Care Teams Health And Wellness Advisor Relationship Specialty Start Date End Date Flo Morillo MD [address] [facility] [address] [place] [address] PCP - General Internal Medicine 03/14/19
--- OUTSIDE RECORDS SUMMARY | 2025-02-22 11:31 | XMS_ITS | Continuity of Care Document ---
Author Organization [facility] [address] [place] [address] Phone [phone] Social History Type Date Description Comments Sex Female Sex Unknown Medical Devices Description No Information Available Encounters Description No Information Available Assessments Description No Information Available Plan of Treatment No Information Available Functional Status Description No Information Available Mental Status Description No Information Available Referrals Description No Information Available
== END 2025-02-21 10:38 | disposition home or self-care (01) ==
LOC: HO.HOSX 10:37
PROVIDERS: Visit Provider Orthopaedic Surgery
DX: Z13.89 Encounter for screening for other disorder (principal)

== ENCOUNTER 2025-03-14 08:50 | Outpatient (REF) | payer MEDICARE, SELFPAY ==
--- NOTE | ~2025-03-14 | XR_ITS ---
EXAMINATION: XR BILATERAL KNEES CLINICAL INFORMATION: Bilateral knee pain COMPARISON: April 06, 2024 and October 13, 2023. TECHNIQUE: AP lateral and sunrise views both knees. FINDINGS: Right knee: There is a metallic prosthesis well-seated in the femoral and tibial osseous structures with loosening. No gross malalignment. Left knee: Metallic prosthesis well-seated in the osseous structures of the distal femur and proximal tibia with loosening. No gross malalignment. 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 Electronically signed by: James Farias MD 03/14/2025 10:33 AM EDT
--- OUTSIDE RECORDS SUMMARY | 2025-03-15 09:10 | XMS_ITS | Clinical Summary ---
Author Organization [facility] Address [address] [place] [address] Phone Care Team Providers Care Hostess Party Sales Representative Name Role Phone Yadira Stewart MD Primary [...] Description 04/19/2025 9:10 AM EDT Office Visit [facility] [address] [facility] [address] [place] [phone] Pauline Carmichael, CHRISSIE [address] [place] [address] Health Maintenance Due Date Last Done Comments [...] Procedure Name Priority Date/Time Associated Diagnosis Comments [facility] DEXA AXIAL SKELETON Routine 05/28/2020 12:12 PM EDT Other specified disorders of bone density and structure, other site from Last 3 Months or Most Recently Relevant to Health Maintenance Results * [facility] DEXA AXIAL SKELETON (05/28/2020 12:12 PM EDT) Anatomical Region Laterality Modality Mammography 05/28/2020 10:3 0 AM EDT Narrative 05/28/2020 12:12 PM EDT [facility] Diagnostic Imaging Department [address] [place] [address] Patient: SOMMER TAYLOR /Age/Sex: 1940 80 - F Unit#: [id number] Location/Status: SPDIMA/REG CLI Mnemonic/[facility] Ordering Physician: YADIRA STEWART MD Cristin Dexa Axial Skeleton - 05/28/206 HISTORY: The patient is a 80-year-old postmenopausal [...] probability of hip fracture of 7.3%. Code 25192 Dictating Physician: ELISA FAIR MD Electronically Signed by: ELISA FAIR MD Dic Date/Time: 05/28/20 1209 Sign date/Time: 05/28/20 1212 Procedure Note Elisa Fair MD - 07/21/2022 [facility] Diagnostic Imaging Department [address] [place] [address] Patient: SOMMER TAYLOR /Age/Sex: 1940 - 80 - F Unit#: [id number] Location/Status: [facility] Mnemonic/Ordering [facility] Ordering Physician: YADIRA STEWART MD Cristin Dexa [...] density of the femurs bilaterally is 0.788 gm/[id number] is 78% of that of young normals [...] probability of hip fracture of 7.3%. Code 05198 Dictating Physician: ELISA FAIR MD Electronically Signed by: ELISA FAIR MD Dic Date/Time: 05/28/20 1209 Sign date/Time: 05/28/20 1212 Yadira Stewart MD IMG BI PROCEDURES Final Resu lt from Last 3 Months or Most Recently Relevant to Health Maintenance Insurance [employer] Care Teams Hostess Party Sales Representative Relationship Specialty Start Date End Date Yadira Stewart MD [address] [place] [address] PCP - General 08/09/18
--- OUTSIDE RECORDS SUMMARY | 2025-03-15 09:10 | XMS_ITS | Continuity of Care Document ---
Author Organization [facility] [address] [facility] [address] [place] [address] Phone [phone] Social History Type Date Description Comments Sex Female Sex Unknown Medical Devices Description No Information Available Encounters Description No Information Available Assessments Description No Information Available Plan of Treatment No Information Available Functional Status Description No Information Available Mental Status Description No Information Available Referrals Description No Information Available
--- OUTSIDE RECORDS SUMMARY | 2025-03-15 09:10 | XMS_ITS | Clinical Summary ---
Author Organization [facility] Address [address] [id number] Care Team Providers Care Welding Systems And Equipment Repairer Name Role Phone Flo Morillo MD Primary Care Provider [phone] Allergies Active Allergy Reactions Criticality Noted Date [...] age to complete this topic Care Teams Welding Systems And Equipment Repairer Relationship Specialty Start Date End Date Flo Morillo MD [address] [facility] [address] [place] [address] PCP - General Internal Medicine 03/14/19
--- OUTSIDE RECORDS SUMMARY | 2025-03-15 09:10 | XMS_ITS | Patient Health Record ---
Author Organization [facility] Address [address] [place] [phone] Care Team Providers Care Systems Mgr Name Role Phone Dhiraj Cox Jr Reason For Referral No Information Plan Of Treatment No Information
== END 2025-03-14 08:51 | disposition home or self-care (01) ==
LOC: HO.HOSX 08:50
PROVIDERS: Visit Provider Orthopaedic Surgery
DX: M25.561 Pain in right knee (principal); M25.562 Pain in left knee; Z96.653 Presence of artificial knee joint, bilateral
CPT/HCPCS: 73562; 99212

== ENCOUNTER 2025-03-14 09:55 | Outpatient (AMB) | payer MEDICARE, SELFPAY ==
--- NOTE | 2025-03-14 10:01 | A.OFFVIS_ITS ---
Vital Signs 03/14/25 10:02 Height 5 ft 7 in Weight 184 lb BMI 28.8 Intake Visit Reasons: Bilateral knee pains Intake Note: Myriam is a 85 year old female who presents today as a follow up for her Right TKA w/ 04/10/24. Patient states she is doing well. She states she does have occasional pain on the lateral aspect of her knee. She denies any fevers or chills. She did undergo left total knee replacement surgery in 2022. She reports minimal discomfort in her left knee. She continues with her home exercise program. Allergies statins Allergy (Mild, Uncoded 03/14/25 10:02) joint pain Medication List - Last Reconciled 03/14/25 by Jaya Mann MD acetaminophen 650 mg (2 x 325 mg) PO Q6H PRN 30 days alendronate 70 mg PO CURTIS Bacillus subtilis-inulin 1.5 billion cell-1 gram (Jovanni De La Cruz) 1 tab PO DAILY calcium carbonate (Calcium 600) 600 mg PO DAILY chlorthalidone 25 mg PO DAILY cholecalciferol (vitamin D3) (Vitamin D3) 50 mcg PO DAILY coenzyme Q10 (Co Q-10) 300 mg PO DAILY docusate sodium 100 mg PO BID 30 days glucosamine-chondroitin 250-200 mg (Osteo Bi-Flex) 1 tab PO DAILY multivitamin 1 tab PO DAILY phytosterol-pantethine 300-100 mg (CholestOff Complete) 1 cap PO DAILY psyllium husk 0.8 grams PO DAILY red yeast rice 1,200 mg PO DAILY rosuvastatin 5 mg PO DAILY turmeric root extract 1,076 mg PO DAILY vitamin B complex 1 cap PO DAILY walker Folding front wheeled walker [facility] Medical History Osteoarthritis of right knee Varicose vein of leg Hx of basal cell carcinoma COVID-19 Right bundle branch block History of fracture of wrist Mild diastolic dysfunction GERD (gastroesophageal reflux disease) Osteoporosis HTN (hypertension) Scarlet fever Hypercholesterolemia Osteoarthritis Surgical History History of total right knee replacement Hx of tonsillectomy Hx of bilateral cataract extraction History of vein stripping Hx of dilation and curettage H/O colonoscopy H/O right wrist surgery Hx of left knee surgery (10/12/22) Social History Household Members: None Housing: House Are you a primary care transition coordinator to a significant other at home: No Do you presently have visiting nurse or other home services: No Comment: Calls when OOB. Bed alarm off due to alarming w/ frequent position changes Patient Tobacco Use Status: Never used Tobacco e-Cigarette/Vaping Use: Never Used service: No Current occupational status: retired Current occupation: Right hand dominate Physical Exam Vital Signs: BMI result Body Mass Index 28.8 Const Other: Well-nourished well-developed very friendly female awake alert and oriented x3 in no acute distress Extrem Other: Bilateral knee examination shows that the surgical incisions are well healed, no erythema, full active extension and flexion to 120 degrees, her patellae track well Results Reviewed Results Reviewed: X-rays of the patient's bilateral knees taken today show total knee arthroplasties in good position no signs of loosening, no acute bony abnormalities Assessment & Plan Assessment & Plan (1) Left knee pain: Code(s): M25.562 - Pain in left knee Category: Medical (2) Right knee pain: Code(s): M25.561 - Pain in right knee Category: Medical Plan Ms. Hitchcock continues to do well after undergoing bilateral total knee replacement surgeries. She will continue with her home exercise program. She does know to take antibiotics before any dental work. She will contact me prior to her annual follow-up appointment should any questions or concerns arise. Feel free to call me at any time should questions regarding her orthopedic management arise. I spent 21 minutes in reviewing the patient's records and imaging studies, seeing the patient and documenting in the medical record. Orders: Orders XR Knee Melo 3V Today M25.561 - Pain in right knee, M25.562 - Pain in left knee Coding Level of Care Code Est Pt Level 3 (09395) Complex EM visit Add On G2211 Diagnoses Left knee pain M25.562 Right knee pain M25.561
[2025-03-14 10:02] VITALS: BMI 28.8
--- OUTSIDE RECORDS SUMMARY | 2025-03-14 10:33 | XMS_ITS | Patient Health Record ---
Author Organization [facility] Address [address] [place] [address] Care Team Providers Care Automatic Grinding Machine Operator Name Role Phone Dhiraj Cox Jr Reason For Referral No Information Plan Of Treatment No Information
--- OUTSIDE RECORDS SUMMARY | 2025-03-14 10:33 | XMS_ITS | Continuity of Care Document ---
Author Organization [facility] [address] [place] [address] Phone [phone] Social History Type Date Description Comments Sex Female Sex Unknown Medical Devices Description No Information Available Encounters Description No Information Available Assessments Description No Information Available Plan of Treatment No Information Available Functional Status Description No Information Available Mental Status Description No Information Available Referrals Description No Information Available
--- OUTSIDE RECORDS SUMMARY | 2025-03-14 10:33 | XMS_ITS | Clinical Summary ---
Author Organization [facility] Address [address] [phone] Care Team Providers Care Parking Enforcement Specialist Name Role Phone Flo Morillo MD Primary Care Provider [phone] Allergies Active Allergy Reactions Criticality Noted Date [...] age to complete this topic Care Teams Parking Enforcement Specialist Relationship Specialty Start Date End Date Flo Morillo MD [address] [facility] [address] [place] [address] PCP - General Internal Medicine 03/14/19
--- OUTSIDE RECORDS SUMMARY | 2025-03-14 10:34 | XMS_ITS | Clinical Summary ---
Author Organization [facility] Address [address] [place] [address] Phone Care Team Providers Care Beveller Operator Name Role Phone Yadira Stewart MD Primary [...] Description 04/19/2025 9:10 AM EDT Office Visit [facility] [address] [facility] [address] [place] [phone] Pauline Carmichael, CHRISSIE [address] [place] [address] Health Maintenance Due Date Last Done Comments [...] Procedure Name Priority Date/Time Associated Diagnosis Comments [facility] DEXA AXIAL SKELETON Routine 05/28/2020 12:12 PM EDT Other specified disorders of bone density and structure, other site from Last 3 Months or Most Recently Relevant to Health Maintenance Results * [facility] DEXA AXIAL SKELETON (05/28/2020 12:12 PM EDT) Anatomical Region Laterality Modality Mammography 05/28/2020 10:3 0 AM EDT Narrative 05/28/2020 12:12 PM EDT [facility] Diagnostic Imaging Department [address] [place] [address] Patient: SOMMER TAYLOR /Age/Sex: 1940 80 - F Unit#: [id number] Location/Status: SPDIMA/REG CLI [facility]emonic[facility] Ordering Physician: YADIRA STEWART MD Cristin Dexa Axial Skeleton - 05/28/205 HISTORY: The patient is a 80-year-old postmenopausal [...] probability of hip fracture of 7.3%. Code 71105 Dictating Physician: ELISA FAIR MD Electronically Signed by: ELISA FAIR MD Dic Date/Time: 05/28/20 1209 Sign date/Time: 05/28/20 1212 Procedure Note Elisa Fair MD - 07/21/2022 [facility] Diagnostic Imaging Department [address] [place] [address] Patient: SOMMER TAYLOR /Age/Sex: 1940 - 80 - F Unit#: [id number] Location/Status: [facility] Mnemonic[facility] Ordering Physician: YADIRA STEWART MD Cristin Dexa [...] density of the femurs bilaterally is 0.788 gm/rw6ggoks is 78% of that of young normals [...] the prior examination of 06/03/2017. There has otng decrease of 5.1% in bone mineral density in the right femur and a decreaseof 4.6% in bone mineral density in the left femur. 2. FRAX analysis yields a 10-year probability of major osteoporoticfracture of 24.6% and a 10-year probability of hip fracture of 7.3%. Code 27435 Dictating Physician: ELISA FAIR MD Electronically Signed by: ELISA FAIR MD Dic Date/Time: 05/28/20 1209 Sign date/Time: 05/28/20 1212 Yadira Stewart MD IMG BI PROCEDURES Final Resu lt from Last 3 Months or Most Recently Relevant to Health Maintenance Insurance [employer] Care Teams Beveller Operator Relationship Specialty Start Date End Date Yadira Stewart MD [address] [place] [address] PCP - General 08/09/18
== END 2025-03-14 10:38 | disposition home or self-care (01) ==
LOC: HO.HOS 09:55
PROVIDERS: PCP Internal Medicine; Visit Provider Orthopaedic Surgery
DX: M25.562 Pain in left knee (principal); M25.561 Pain in right knee
CPT/HCPCS: 99213; G2211

== ENCOUNTER → 2025-03-14 09:56 | Outpatient (BNV) | payer MEDICARE, SELFPAY | PROVIDERS: Visit Provider Radiology Diagnostic Radiology | DX: M25.561 Pain in right knee (principal); M25.562 Pain in left knee; Z96.653 Presence of artificial knee joint, bilateral | CPT/HCPCS: 73562 ==